=== PATIENT | male | born 1955 | race Caucasian/White ===

== ENCOUNTER → 2016-03-14 | Outpatient (CLI) | payer OTHER ==
[~2016-03-14] MED LIST: ALBU17IN INH; ATOR40TA PO; COUM10TA PO; COUM6TAB PO; ESTR1DIS5 TD; FURO40TA2 PO; INSUH10VL SC; IPRASOL4 IN; LEVE1INJ5 SC; LEXA1TAB PO; METF1000 PO; MULT1TAB10 PO; NYST10CR EXT; PHEN-239 PO; SERO50TA PO; SPIR50TA2 PO; TOPA25TA10 PO; VITA200016 PO
--- NOTE | 2016-03-14 16:43 | REP ---
Chest x-ray: Two views. History: Preoperative testing. Genital warts. No comparison studies. 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 There are degenerative changes in the thoracic spine. Heart is not enlarged. The lungs are well inflated and clear. Pleural angles are sharp. Pulmonary vasculature is not increased. No other bony abnormality is seen. Impression: Azygos lobe noted. Degenerative disc changes in the thoracic spine. No acute disease. Signed by Al Cooper MD 03/14/2016 05:03 P
== END ==
LOC: M ADAMS 15:25
PROVIDERS: ATTEND Urology
DX: Z01.818 Encounter for other preprocedural examination (principal); A63.0 Anogenital (venereal) warts

== ENCOUNTER → 2016-03-14 | Outpatient (REF) | payer OTHER ==
[2016-03-14 18:51] LABS: MEAN CORPUSCULAR HEMOGLOBIN 30.9 pg (27.0-33.0); MEAN CORPUSCULAR HGB CONC 35.4 g/dl (32.0-36.5); MEAN CORPUSCULAR VOLUME 87.5 fl (80.0-96.0)
[2016-03-14 18:53] LABS: CALCIUM LEVEL 9.9 MG/DL (8.8-10.2); CREATININE FOR GFR 1.38 MG/DL (0.70-1.30); GLOMERULAR FILTRATION RATE 55.4 (>49); POTASSIUM SERUM 3.4 MEQ/L (3.5-5.1)
[2016-03-14 18:55] LABS: INR 2.07
== END ==
LOC: M LABSMT 15:21
PROVIDERS: ATTEND Urology
DX: Z01.818 Encounter for other preprocedural examination (principal); A63.0 Anogenital (venereal) warts

== ENCOUNTER → 2016-04-10 | Outpatient (CLI) | payer OTHER ==
[2016-04-10 20:09] LABS: ALBUMIN 3.5 GM/DL (3.2-5.2); ALBUMIN/GLOBULIN RATIO 0.97 (1.00-1.93); BILIRUBIN,TOTAL 0.7 MG/DL (0.2-1.0); CREATININE FOR GFR 1.35 MG/DL (0.55-1.02); GLOMERULAR FILTRATION RATE 42.2 (>45); POTASSIUM SERUM 3.6 MEQ/L (3.5-5.1); TOTAL PROTEIN 7.1 GM/DL (6.4-8.2)
[2016-04-10 20:11] LABS: MEAN CORPUSCULAR HEMOGLOBIN 30.1 pg (27.0-33.0); MEAN CORPUSCULAR HGB CONC 33.8 g/dl (32.0-36.5); RED CELL DISTRIBUTION WIDTH 13.4 % (11.5-14.5); WHITE BLOOD COUNT 8.6 K/mm3 (4.0-10.0)
[2016-04-10 20:12] LABS: ESTRADIOL 32.7 PG/ML; PROLACTIN 4.8 NG/ML
== END ==
LOC: M LAB 17:31
PROVIDERS: ATTEND Internal Medicine Endocrinology, Diabetes & Metabolism
DX: F64.0 Transsexualism (principal); Z79.899 Other long term (current) drug therapy; E11.42 Type 2 diabetes mellitus with diabetic polyneuropathy; Z79.4 Long term (current) use of insulin

== ENCOUNTER → 2016-04-10 | Outpatient (CLI) | payer OTHER ==
[2016-04-10 19:21] LABS: MEAN CORPUSCULAR HEMOGLOBIN 30.6 pg (27.0-33.0); MEAN CORPUSCULAR HGB CONC 34.5 g/dl (32.0-36.5); MEAN CORPUSCULAR VOLUME 88.8 fl (80.0-96.0); RED CELL DISTRIBUTION WIDTH 13.4 % (11.5-14.5); WHITE BLOOD COUNT 8.8 K/mm3 (4.0-10.0)
[2016-04-10 20:07] LABS: ALBUMIN 3.5 GM/DL (3.2-5.2); ALBUMIN/GLOBULIN RATIO 0.97 (1.00-1.93); BILIRUBIN,TOTAL 0.7 MG/DL (0.2-1.0); CALCIUM LEVEL 10.1 MG/DL (8.8-10.2); CREATININE FOR GFR 1.37 MG/DL (0.55-1.02); GLOMERULAR FILTRATION RATE 41.5 (>45); POTASSIUM SERUM 3.6 MEQ/L (3.5-5.1); TOTAL PROTEIN 7.1 GM/DL (6.4-8.2)
== END ==
LOC: M LAB 17:24
PROVIDERS: ATTEND Family Medicine
DX: E34.9 Endocrine disorder, unspecified (principal)

== ENCOUNTER → 2016-04-25 | Outpatient (REF) | payer OTHER ==
[2016-04-25 20:23] LABS: ALBUMIN 3.7 GM/DL (3.2-5.2); CALCIUM LEVEL 10.3 MG/DL (8.8-10.2); CREATININE FOR GFR 1.51 MG/DL (0.55-1.02); GLOMERULAR FILTRATION RATE 37.1 (>45); PHOSPHORUS LEVEL 3.1 MG/DL (2.5-4.9); POTASSIUM SERUM 3.8 MEQ/L (3.5-5.1)
== END ==
LOC: M SFHCADAM 14:26
PROVIDERS: ATTEND Family Medicine
DX: N18.3 Chronic kidney disease, stage 3 (moderate) (principal)

== ENCOUNTER → 2016-04-25 | Outpatient (CLI) | payer OTHER ==
--- NOTE | 2016-04-25 12:24 | REP ---
URINARY TRACT SONOGRAPHY WITH RENAL VASCULAR DOPPLER ASSESSMENT: HISTORY: Chronic kidney disease stage III. MORPHOLOGIC FINDINGS: The urinary bladder is empty at the time of scanning. Renal cortical echogenicity pattern is normal bilaterally. There is some focal cortical atrophy in the left ofd-om-ydyop kidney laterally. There is a large shadowing calculus in the region of the left renal pelvis measuring 2.5 x 2.1 x 1.0 cm. There is no hydronephrosis on either side. There is a peripheral cyst at the upper pole right kidney measuring 0.9 cm. Right renal dimensions of 13.6 x 5.9 x 6.0 cm. The left kidney measures 10.0 x 6.1 x 6.3 cm. IMPRESSION: Large the renal pelvis calculus on the left without visible hydronephrosis. Focal scarring left kidney. Small cyst upper pole right kidney. RENAL ARTERY DOPPLER FLOW ASSESSMENT: Doppler flow wave forms could not be achieved sonographically in the abdominal aorta or in the right or left main renal artery due to patient body habitus. The intralobar resistive indices and acceleration times were assessed at the upper, mid and lower pole of each kidney and these values are normal bilaterally. IMPRESSION: No indirect evidence of renal artery stenosis. Renal arteries and aortic flow velocities could not be directly assessed. Signed by Al Cooper MD 04/25/2016 02:01 P
== END ==
LOC: M RAD 08:45
PROVIDERS: ATTEND Family Medicine
DX: N18.3 Chronic kidney disease, stage 3 (moderate) (principal)

== ENCOUNTER → 2016-04-26 | Outpatient (REF) | payer OTHER ==
[2016-04-26 09:52] LABS: MICROSCOPIC INDICATED? MAN YES (NO); SQUAMOUS EPITHELIAL CELL URINE NONE SEEN /hpf (SMALL AMT)
[2016-04-26 09:53] LABS: BACTERIA, URINE SMALL AMOUNT; CALCIUM OXALATE CRYSTALS,URINE MOD AMOUNT /hpf; HYALINE CAST, URINE NONE SEEN /lpf (0-1); MICROSCOPIC EXAM PERFORMED
== END ==
LOC: M SFHCADAM 09:09
PROVIDERS: ATTEND Family Medicine
DX: N18.3 Chronic kidney disease, stage 3 (moderate) (principal)

== ENCOUNTER → 2016-04-26 | Day surgery (SDC) | payer OTHER ==
[~2016-04-26] VITALS: Ht 177.8 cm; Wt 186.4 kg
[~2016-04-26] MED LIST changes: +BACITRACIN OINT 30GM As Ordered ONE; +BACITRACIN OINT 30GM TOP ONE; +GLYCOPYRROLATE INJ 0.2 MG/ML 2 ML VIAL As Ordered ONE; +HumaLOG INSULIN (NovoLOG) PER UNIT As Ordered ONE; +HumaLOG INSULIN (NovoLOG) PER UNIT SC ONE; +LIDOCAINE 2% INJ 100 MG/5 ML SDV (FOR ANES.) As Ordered ONE; +LR 1,000 ML IV SCH; +MIDAZOLAM INJ 2 MG/2 ML VIAL (J2250) As Ordered ONE; +NEOSTIGMINE 1MG/ML 5 ML SYRINGE (J2710) As Ordered ONE; +ONDANSETRON 4MG/2ML VIAL (J2405) As Ordered ONE; +PERCOCET 5MG/325MG TAB PO PRN; +PROPOFOL 200 MG/20 ML VIAL As Ordered ONE; +ceFAZolin 2 GM/D5W 50 ML IV BAG (J0690) As Ordered ONE; +dexameTHASONE 4 MG/ML 1ML VIAL (J1100) As Ordered ONE; +fentaNYL 100 MCG/2 ML INJECTION (J3010) As Ordered ONE; +fentaNYL 100 MCG/2 ML INJECTION (J3010) IV PRN; +fentaNYL 250 MCG/5 ML INJECTION (J3010) As Ordered ONE; +hydrALAZINE INJ 20 MG/ML VIAL As Ordered ONE
[2016-04-26 07:12] LABS: INR 1.13
[2016-04-26] MEDS: fentaNYL 100 MCG/2 ML INJECTION (J3010) IV PRN ×4 (10:20→10:35)
--- NOTE | 2016-04-26 12:52 | RO ---
DATE OF PROCEDURE: 04/26/2016 PREPROCEDURE DIAGNOSIS: Genital warts. POSTPROCEDURE DIAGNOSIS: Genital warts. PROCEDURE: Circumcision, excision of genital warts. SURGEON: Bernardo Horowitz MD FERRYBOAT TICKET TAKER: None ANESTHESIA: General. OPERATIVE INDICATIONS: This is a 61-year-old male who originally presented to me about 2-1/2 months ago for a penile abnormality. Of note, this patient at that time was legally a male and has since legally become a female. This is a transgender patient. At the time that I originally examined the patient, there were several [id number] lesions around the foreskin, and they appeared to be confined to that area. Therefore, I recommended that she be brought to the operating room for circumcision and for treatment of genital warts. DESCRIPTION OF PROCEDURE: The patient was brought to the operating room, and general anesthesia was induced. Prophylactic antibiotics were infused. The patient was then prepped and draped in the usual sterile fashion. At this point, the patient was examined under anesthesia; and of note, there were still several genital warts along the foreskin, as well as a few other satellite areas just above the penis, on the panus, as well as just lateral to the penis on the patient's panus. At this point, all the satellite lesions were excised, and the skin was closed using interrupted 3-0 chromic sutures. At this point, I then began the circumcision and placed a 2-0 silk retraction stitch through the glans. Then, a circumcising incision was made around the foreskin just proximal to the coronal sulcus. Another circumcising incision was made around the foreskin after the foreskin was pulled back over the glans. These two circumcising incisions were then connected using Bovie electrocautery. Then, all of the foreskin between the two incisions was excised using electrocautery. At this point, hemostasis was obtained using electrocautery. It did appear that all the warts were removed with the foreskin. The skin of the shaft of the penis was then reapproximated to the glans using interrupted 3-0 chromic sutures circumferentially. Once this was done, the dressings were applied, including a Modesta dressing around the penis. A Kerlix fluff dressing was then placed, as well, and this marked the conclusion of the procedure. The patient was then awakened from anesthesia and transported to the recovery room in stable condition. ESTIMATED BLOOD LOSS: 10 mL. COMPLICATIONS: None. SPECIMENS: Foreskin, genital warts. PLAN: The patient will be discharged home and followup in the clinic in 2-3 weeks for a postoperative visit. RAKESH
[2016-04-26 14:30] VITALS: BP 152/88
== END | disposition home or self-care (01) ==
LOC: M SDC 06:18 → EDSEX 07:30
PROVIDERS: ATTEND Urology
DX: A63.0 Anogenital (venereal) warts (principal); N48.83 Acquired buried penis; E10.9 Type 1 diabetes mellitus without complications; I10 Essential (primary) hypertension; E78.5 Hyperlipidemia, unspecified; R85.81 Anal high risk human papillomavirus (HPV) DNA test positive; R29.898 Other symptoms and signs involving the musculoskeletal system; R06.83 Snoring; F41.9 Anxiety disorder, unspecified; F32.9 Major depressive disorder, single episode, unspecified; F43.10 Post-traumatic stress disorder, unspecified; G47.33 Obstructive sleep apnea (adult) (pediatric); J44.9 Chronic obstructive pulmonary disease, unspecified; I50.9 Heart failure, unspecified; E66.01 Morbid (severe) obesity due to excess calories; Z79.899 Other long term (current) drug therapy; Z79.4 Long term (current) use of insulin; Z79.01 Long term (current) use of anticoagulants; Z86.711 Personal history of pulmonary embolism
CPT/HCPCS: 36415; 54065; 54161; 85610; 88304; 88305; J0690; J1100; J2250; J2405; J2710; J3010

== ENCOUNTER → 2016-05-08 | Outpatient (REF) | payer OTHER ==
[~2016-05-08] MED LIST changes: -BACITRACIN OINT 30GM As Ordered ONE; -BACITRACIN OINT 30GM TOP ONE; -GLYCOPYRROLATE INJ 0.2 MG/ML 2 ML VIAL As Ordered ONE; -HumaLOG INSULIN (NovoLOG) PER UNIT As Ordered ONE; -HumaLOG INSULIN (NovoLOG) PER UNIT SC ONE; -LIDOCAINE 2% INJ 100 MG/5 ML SDV (FOR ANES.) As Ordered ONE; -LR 1,000 ML IV SCH; -MIDAZOLAM INJ 2 MG/2 ML VIAL (J2250) As Ordered ONE; -NEOSTIGMINE 1MG/ML 5 ML SYRINGE (J2710) As Ordered ONE; -ONDANSETRON 4MG/2ML VIAL (J2405) As Ordered ONE; -PERCOCET 5MG/325MG TAB PO PRN; -PROPOFOL 200 MG/20 ML VIAL As Ordered ONE; -ceFAZolin 2 GM/D5W 50 ML IV BAG (J0690) As Ordered ONE; -dexameTHASONE 4 MG/ML 1ML VIAL (J1100) As Ordered ONE; -fentaNYL 100 MCG/2 ML INJECTION (J3010) As Ordered ONE; -fentaNYL 100 MCG/2 ML INJECTION (J3010) IV PRN; -fentaNYL 250 MCG/5 ML INJECTION (J3010) As Ordered ONE; -hydrALAZINE INJ 20 MG/ML VIAL As Ordered ONE
[2016-05-08 15:31] LABS: CALCIUM LEVEL 9.8 MG/DL (8.8-10.2); CREATININE FOR GFR 1.23 MG/DL (0.55-1.02); GLOMERULAR FILTRATION RATE 46.9 (>45); POTASSIUM SERUM 4.2 MEQ/L (3.5-5.1)
== END ==
LOC: M SHH 14:59
PROVIDERS: ATTEND Family Medicine
DX: N18.3 Chronic kidney disease, stage 3 (moderate) (principal)

== ENCOUNTER → 2016-05-29 | Outpatient (CLI) | payer OTHER ==
--- NOTE | 2016-05-29 15:39 | REP ---
CT ABDOMEN AND PELVIS WITHOUT IV CONTRAST: CT abdomen and pelvis performed without IV contrast. Sagittal and coronal reconstruction images are performed. Visualized lung bases demonstrate tiny calcified granulomas bilaterally. Liver, gallbladder, spleen, adrenals, and pancreas are grossly unremarkable. Both kidneys demonstrate areas of cortical scarring. There is no hydroureteronephrosis. There is a dominant oval calculus in the mid right renal collecting system measuring 1.8 x 1.3 x 0.8 cm. A dominant calculus in the lower pole of the left renal collecting system measures 1.1 x 1.5 x 0.9 cm. A smaller calculus in the upper pole collecting system on the left measures 7 mm in diameter. There appears to be a small cyst in the lower pole of the left kidney as well as in the lower pole of the right kidney. There is no abdominal aortic aneurysm. There is no adenopathy. There is no free air or free fluid. There is no bowel wall thickening. There does appear to be a small umbilical hernia containing fat. A small amount of fluid is seen in the left inguinal canal. Urinary bladder is not well distended and not well evaluated. IMPRESSION: Bilateral renal calculi as discussed above with multifocal cortical scarring and thinning. Small cyst is seen in the lower pole of each kidney. No hydroureteronephrosis. Signed by Krishna Carrera MD 05/29/2016 03:58 P
== END ==
LOC: M RAD 14:38
PROVIDERS: ATTEND Urology
DX: N20.0 Calculus of kidney (principal)

== ENCOUNTER → 2016-07-07 | Outpatient (CLI) | payer OTHER ==
[2016-07-07 18:45] LABS: ALBUMIN 3.5 GM/DL (3.2-5.2); ALBUMIN/GLOBULIN RATIO 1.03 (1.00-1.93); BILIRUBIN,TOTAL 0.7 MG/DL (0.2-1.0); CALCIUM LEVEL 9.1 MG/DL (8.8-10.2); CREATININE FOR GFR 1.2 MG/DL (0.55-1.02); GLOMERULAR FILTRATION RATE 48.3 (>45); MAGNESIUM LEVEL 1.4 MG/DL (1.8-2.4); PERCENT SATURATION 27.3 % (13.2-37.4); PHOSPHORUS LEVEL 2.7 MG/DL (2.5-4.9); TOTAL PROTEIN 6.9 GM/DL (6.4-8.2)
[2016-07-07 18:53] LABS: BASO % 0.4 % (0.0-1.0); EOS # 0.2 K/mm3 (0.0-0.50); EOS % 3.1 % (0.0-3.0); LARGE UNSTAINED CELL # 0.1 K/mm3 (0.0-0.4); LARGE UNSTAINED CELL % 1.9 % (0.0-4.0); LYMPH # 1.9 K/mm3 (1.5-4.5); LYMPH % 28.8 % (24.0-44.0); MEAN CORPUSCULAR HEMOGLOBIN 30.7 pg (27.0-33.0); MEAN CORPUSCULAR HGB CONC 34.7 g/dl (32.0-36.5); MEAN CORPUSCULAR VOLUME 88.5 fl (80.0-96.0); MONO # 0.4 K/mm3 (0.0-0.8); MONO % 5.9 % (0.0-5.0); NEUTROPHILS # 3.9 K/mm3 (1.8-7.7); PLATELET COUNT, AUTOMATED 288 k/mm3 (150-450); RED CELL DISTRIBUTION WIDTH 14.1 % (11.5-14.5); WHITE BLOOD COUNT 6.4 K/mm3 (4.0-10.0)
== END ==
LOC: M ADAMS 12:59
PROVIDERS: ATTEND Urology
DX: K91.2 Postsurgical malabsorption, not elsewhere classified (principal); Z98.84 Bariatric surgery status

== ENCOUNTER 2016-07-29 13:40 | Emergency (ER) | payer OTHER ==
[~2016-07-29] VITALS: Ht 177.8 cm; Wt 172.8 kg
[2016-07-29] MEDS ORDERED: NS 1,000 ML IV SCH (13:52)
[2016-07-29] MEDS ORDERED: PANTOPRAZOLE 40MG INJ (PROTONIX) (C9113) IV ONE (14:00)
[2016-07-29 14:53] LABS: BASO % 0.4 % (0.0-1.0); EOS # 0.1 K/mm3 (0.0-0.50); LARGE UNSTAINED CELL # 0.1 K/mm3 (0.0-0.4); LYMPH # 1.8 K/mm3 (1.5-4.5); LYMPH % 18.6 % (24.0-44.0); MEAN CORPUSCULAR HEMOGLOBIN 30.1 pg (27.0-33.0); MEAN CORPUSCULAR HGB CONC 34.9 g/dl (32.0-36.5); MEAN CORPUSCULAR VOLUME 86.3 fl (80.0-96.0); MONO # 0.4 K/mm3 (0.0-0.8); MONO % 3.8 % (0.0-5.0); NEUTROPHILS # 6.9 K/mm3 (1.8-7.7); NEUTROPHILS % 75.2 % (36.0-66.0); PLATELET COUNT, AUTOMATED 273 k/mm3 (150-450); RED CELL DISTRIBUTION WIDTH 14.1 % (11.5-14.5); WHITE BLOOD COUNT 9.2 K/mm3 (4.0-10.0)
[2016-07-29 15:23] LABS: ALBUMIN 2.8 GM/DL (3.2-5.2); ALBUMIN/GLOBULIN RATIO 0.78 (1.00-1.93); ALKALINE PHOSPHATASE 65 U/L (45-117); ALT/SGPT 25 U/L (12-78); ANION GAP 8 MEQ/L (8-16); AST/SGOT 14 U/L (15-37); BILIRUBIN,DIRECT 0.1 MG/DL (0.0-0.2); BILIRUBIN,TOTAL 0.4 MG/DL (0.2-1.0); BLOOD UREA NITROGEN 36 MG/DL (7-18); CALCIUM LEVEL 9.2 MG/DL (8.8-10.2); CARBON DIOXIDE LEVEL 24 MEQ/L (21-32); CHLORIDE LEVEL 110 MEQ/L (98-107); CREATININE FOR GFR 1.33 MG/DL (0.55-1.02); GLOMERULAR FILTRATION RATE 42.9 (>45); GLUCOSE, FASTING 160 MG/DL (80-110); POTASSIUM SERUM 4.6 MEQ/L (3.5-5.1); SODIUM LEVEL 142 MEQ/L (136-145); TOTAL PROTEIN 6.4 GM/DL (6.4-8.2)
[2016-07-29 16:08] LABS: INR 11.99
[2016-07-29] MEDS ORDERED: PHYTONADIONE 10MG/ML INJECTION (J3430) SC ONE (16:30)
[2016-07-29] MEDS: PANTOPRAZOLE SODIUM 40 MG in D5W MINI-BAG PLUS 50 ML IV SCH ×2 (16:31→19:00)
--- NOTE | 2016-07-29 18:18 | ECGEPIP ---
Stationary ECG Study [facility] - ED Test Date: 2016-07-29 Pat Name: OG PANTOJA Department: Room: - Gender: F [employer]ging [employer] Lever Tender: MARIA ELENA : 1955 Requested By: Joanna Vicente Order Number: [id number] Reading MD: Joanna Vicente Measurements Intervals [place] Rate: 99 P: 87 IA: 183 QRS: -51 QRSD: 157 T: -3 QT: 374 QTc: 480 Interpretive Statements SINUS RHYTHM RIGHT BUNDLE BRANCH BLOCK LEFT ANTERIOR FASCICULAR BLOCK POSSIBLE ANTERIOR MYOCARDIAL INFARCTION, PROBABLY OLD NO PRIOR FOR COMPARISON Electronically Signed On 07-29-2016 18:18:20 EDT by Joanna Vicente
[2016-07-29 19:58] VITALS: BP 116/71
--- NOTE | 2016-07-30 08:58 | REP ---
CT ABDOMEN AND PELVIS WITHOUT CONTRAST: HISTORY: Gastric bypass. COMPARISON: 05/29/2016 The patient is status post gastric bypass. The kidneys irregular in contour, consistent with scarring. Calcifications are present in the kidneys, consistent with nephrolithiasis. A 1.5 cm cyst is present in the lower pole of the left kidney. There is no mass, adenopathy, or free fluid. A small 3.3 cm fat-containing umbilical hernia is present. The visualized lungs are clear. CT PELVIS: Urinary bladder and uterus are normal in appearance. There is no mass adenopathy or free fluid. IMPRESSION: 1. Bilateral nephrolithiasis. 2. 1.5 cm left renal cyst. 3. Small umbilical hernia. Signed by Ricky Koehler MD 07/30/2016 09:22 A
== END 2016-07-29 20:00 | disposition short-term general hospital (02) ==
LOC: EDBD 13:40 → M ED 15:28
DX: K92.2 Gastrointestinal hemorrhage, unspecified (principal); K92.1 Melena; N20.0 Calculus of kidney; K42.9 Umbilical hernia without obstruction or gangrene; I10 Essential (primary) hypertension; I50.9 Heart failure, unspecified; E11.9 Type 2 diabetes mellitus without complications; Z79.01 Long term (current) use of anticoagulants; Z98.84 Bariatric surgery status
CPT/HCPCS: 36415; 36430; 74176; 80048; 80076; 82550; 82553; 83605; 83690; 85025; 85610; 86850; 86900; 86901; 86927; 93005; 94760; 96372; 96374; 96375; 99285; C9113; J3430; P9017

== ENCOUNTER → 2016-08-08 | Outpatient (REF) | payer OTHER ==
[2016-08-08 19:28] LABS: MEAN CORPUSCULAR HEMOGLOBIN 30.7 pg (27.0-33.0); MEAN CORPUSCULAR HGB CONC 33.2 g/dl (32.0-36.5); MEAN CORPUSCULAR VOLUME 92.5 fl (80.0-96.0); RED CELL DISTRIBUTION WIDTH 16.1 % (11.5-14.5); WHITE BLOOD COUNT 5.3 K/mm3 (4.0-10.0)
[2016-08-08 19:31] LABS: INR 1.05
[2016-08-08 20:38] LABS: ALBUMIN 3.2 GM/DL (3.2-5.2); ALBUMIN/GLOBULIN RATIO 1.03 (1.00-1.93); BILIRUBIN,TOTAL 0.6 MG/DL (0.2-1.0); CALCIUM LEVEL 9.6 MG/DL (8.8-10.2); CREATININE FOR GFR 1.11 MG/DL (0.55-1.02); GLOMERULAR FILTRATION RATE 52.8 (>45); MAGNESIUM LEVEL 1.7 MG/DL (1.8-2.4); POTASSIUM SERUM 4.2 MEQ/L (3.5-5.1); TOTAL PROTEIN 6.3 GM/DL (6.4-8.2)
== END ==
LOC: M SFHCADAM 14:28
PROVIDERS: ATTEND Physician Assistant
DX: Z86.718 Personal history of other venous thrombosis and embolism (principal); R60.9 Edema, unspecified; E11.65 Type 2 diabetes mellitus with hyperglycemia; E78.2 Mixed hyperlipidemia; Z86.711 Personal history of pulmonary embolism; Z79.01 Long term (current) use of anticoagulants

== ENCOUNTER → 2016-08-17 | Outpatient (REF) | payer OTHER ==
[2016-08-17 20:18] LABS: ESTRADIOL 20.3 PG/ML
== END ==
LOC: M LABDRWAD 09:50
PROVIDERS: ATTEND Nurse Practitioner Family
DX: Z79.899 Other long term (current) drug therapy (principal)

== ENCOUNTER → 2016-09-14 | Outpatient (CLI) | payer OTHER ==
[~2016-09-14] MED LIST changes: -ATOR40TA PO; +ATOR40TA75 PO; +BIOT10008 PO; +CALC1POW TOP; +CALC250T PO; +CYTO100T PO; +ENOX150I3 SC; +ESCI20TA PO; +ESTR0.059 TD; +GAS-80CH PO; +MAG400TA PO; +METF-414 PO; -METF1000 PO; +METF10004 PO; -NYST10CR EXT; +NYST10CR TOP; +OMEP40CA2 PO; +TOPA1TAB PO; -TOPA25TA10 PO; +VITA10002 PO; +VITA500T88 PO; +WARF-23 PO; +[UNRECOGNIZED DRUG - CODE] SC
--- NOTE | 2016-09-14 14:55 | REP ---
PA and lateral chest: Comparison is 03/14/2016. The lung quezada are clear. Cardiac size is normal. The right hilus appears enlarged but unchanged. The left hilus is unremarkable. The interstitium is unremarkable. 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 There is demineralization and thoracic scoliosis convex right, unchanged. Impression: Enlarged right hilus. The left hilus is unremarkable. Demineralization and scoliosis, unchanged. No interval change. Signed by Krishna Ferreira MD 09/14/2016 02:46 P
== END ==
LOC: M ADAMS 14:10
PROVIDERS: ATTEND Internal Medicine Pulmonary Disease
DX: D86.89 Sarcoidosis of other sites (principal)

== ENCOUNTER → 2016-09-29 | Outpatient (CLI) | payer OTHER ==
[~2016-09-29] MED LIST changes: +ISOVUE-370 76% 100ML VIAL (Q9967) As Ordered ONE
--- NOTE | 2016-09-30 10:43 | REP ---
CT CHEST WITH CONTRAST: 09/29/2016. CLINICAL HISTORY: Large right hilum. Recent chest x-ray 09/14/2016 showed hilar enlargement compared to 03/14/2016 chest x-ray. COMPARISON: 09/14/2016, 03/14/2016 chest x-ray. TECHNIQUE. A bolus of 75 mL Isovue 370 scanning through the chest with coronal and sagittal reconstructions. Nursing note indicates IV contrast leaking around the needle hub with the IV restarted. FINDINGS: The lung quezada are well inflated. There is a small calcified granuloma along the pleural margin in the left lower lobe on image 81. Only minimal pleural thickening posteriorly in the left lower lung zone without pleural effusion, lateral pleural thickening, calcified pleural plaques or acute infiltrate. There is an azygos lobe fissure in the medial right apex as an anatomic variation. There is some mild cylindrical bronchiectatic change in some of the subsegmental airways adjacent to the pulmonary arteries of both lower lung zones. Another small granuloma lateral aspect of the inferior lingular segment on image 70 and a third just posterior to the major fissure in the lateral basal segment of the left lower lobe on image 79. Heart is not enlarged. There is no pericardial thickening or effusion. The aorta is without aneurysm and has a few calcifications in the arch. There is no dissection. I see no pathologic sized mediastinal or hilar adenopathy. The right hilar prominence is noted by radiograph is due to prominence of the pulmonary artery. No adjacent nodes or mass. Pulmonary arteries are not well opacified with minimal contrast as this was not a CT pulmonary angiogram study. However, there appear to be filling defects in branches off the main, right and left pulmonary arteries as they descend into the lower lobe pulmonary arteries and the right middle lobe pulmonary artery. Also the left upper lobe artery shows thrombus or filling defects. In the descending branches of the right lower lobe there is more thrombus although contrast is not ideal filling defects are clearly defined. There is no axillary or supraclavicular mass. There are diffuse degenerative changes with marginal osteophytes and some flowing osteophytes in the thoracic spine but no acute compression deformity or destructive lesion. Sternum, manubrium, medial clavicles, scapulae and ribs grossly intact. The upper abdomen shows no splenomegaly or focal lesion. That portion of liver was grossly intact. Gallbladder shows no calcified stone. The visualized pancreas was unremarkable . There were gastric bypass staple lines overlying the stomach. Adrenal glands were normal. Upper poles of kidneys show lobation and some scarring laterally in the upper pole on the left. Small calcification in that upper pole on the left as well. IMPRESSION: 1. Although not a CT pulmonary angiogram study, the small amount of contrast in the pulmonary arteries is sufficient to define multiple filling defects bilaterally at the takeoffs of multiple lobar arteries including the right middle and lower lobes as well as the left upper and lower lobe pulmonary arteries. Thrombus as filling defects in segmental arteries is also suggested. A more definitive CT angiogram would be strongly recommended. 2. Enlargement of the right hilum noted on chest x-ray compared to the February study is only enlargement of the pulmonary artery itself without adjacent adenopathy, atelectasis or soft tissue mass in the hilum or lung adjacent. 3. Some granulomatous changes in the lung quezada minimal and no acute infiltrate, nodule or mass in the lung otherwise. No effusion, cardiomegaly or edema. 4. No aortic aneurysm or dissection. 5. We tried contacting the patient directly at home before this dictation and left a message on her answering machine. I have discussed this case with our ED provider since I believe she needs to come for urgent CTA pulmonary angiogram and definitive therapy for this unexpected finding. I am trying to reach the requesting nurse practitioner for this patient at the time of this dictation, at 9:38 AM. Signed by Chris Malik MD 09/30/2016 07:54 P
== END ==
LOC: M RAD 17:05
PROVIDERS: ATTEND Nurse Practitioner Family
DX: G47.33 Obstructive sleep apnea (adult) (pediatric) (principal)
CPT/HCPCS: 71260; Q9967

== ENCOUNTER 2016-09-30 12:14 | Inpatient (IN) | payer OTHER ==
[~2016-09-30] VITALS: Ht 177.8 cm; Wt 162.7 kg
[2016-09-30] MEDS: FUROSEMIDE 40 MG TAB PO SCH (09:00)
[2016-09-30] MEDS: ATORVASTATIN 20 MG TAB PO SCH (09:00)
[2016-09-30] MEDS: SPIRONOLACTONE 50 MG TAB PO SCH (09:00)
[2016-09-30] MEDS: MAGNESIUM OXIDE 400 MG TAB (MAG-OX) PO SCH (09:00)
[~2016-09-30 12:14] MED LIST changes: -BIOT10008 PO; -CALC1POW TOP; -CALC250T PO; -CYTO100T PO; -ENOX150I3 SC; -ESCI20TA PO; -ESTR0.059 TD; -GAS-80CH PO; -ISOVUE-370 76% 100ML VIAL (Q9967) As Ordered ONE; -MAG400TA PO; -METF-414 PO; -OMEP40CA2 PO; -VITA10002 PO; -VITA500T88 PO; -WARF-23 PO; -[UNRECOGNIZED DRUG - CODE] SC
[2016-09-30 12:57] LABS: BASO % 0.6 % (0.0-1.0); EOS # 0.2 K/mm3 (0.0-0.50); LARGE UNSTAINED CELL # 0.1 K/mm3 (0.0-0.4); LARGE UNSTAINED CELL % 1.6 % (0.0-4.0); LYMPH # 1.5 K/mm3 (1.5-4.5); LYMPH % 27.2 % (24.0-44.0); MEAN CORPUSCULAR HEMOGLOBIN 28.7 pg (27.0-33.0); MEAN CORPUSCULAR HGB CONC 33.5 g/dl (32.0-36.5); MEAN CORPUSCULAR VOLUME 85.6 fl (80.0-96.0); MONO # 0.4 K/mm3 (0.0-0.8); NEUTROPHILS # 3.2 K/mm3 (1.8-7.7); NEUTROPHILS % 59.6 % (36.0-66.0); PLATELET COUNT, AUTOMATED 206 k/mm3 (150-450); RED CELL DISTRIBUTION WIDTH 13.4 % (11.5-14.5); WHITE BLOOD COUNT 5.4 K/mm3 (4.0-10.0)
[2016-09-30 13:16] LABS: CALCIUM LEVEL 9.6 MG/DL (8.8-10.2); CREATININE FOR GFR 1.05 MG/DL (0.55-1.02); GLOMERULAR FILTRATION RATE 56.3 (>45); POTASSIUM SERUM 4.2 MEQ/L (3.5-5.1)
[2016-09-30] MEDS ORDERED: ISOVUE-370 76% 100ML VIAL (Q9967) As Ordered ONE (13:28)
[2016-09-30] MEDS ORDERED: VITA10002 PO (15:05)
[2016-09-30] MEDS ORDERED: ESCI20TA PO (15:05)
[2016-09-30] MEDS ORDERED: METF-414 PO (15:05)
[2016-09-30] MEDS ORDERED: BIOT10008 PO (15:05)
[2016-09-30] MEDS ORDERED: OMEP40CA2 PO (15:05)
[2016-09-30] MEDS ORDERED: MAG400TA PO (15:05)
[2016-09-30] MEDS ORDERED: CYTO100T PO (15:05)
[2016-09-30] MEDS ORDERED: CALC250T PO (15:05)
[2016-09-30] MEDS ORDERED: ESTR0.059 TD (15:05)
[2016-09-30] MEDS ORDERED: CALC1POW TOP (15:05)
[2016-09-30] MEDS ORDERED: VITA500T88 PO (15:05)
[2016-09-30] MEDS ORDERED: GAS-80CH PO (15:05)
[2016-09-30] MEDS ORDERED: ALBU17IN INH (15:05)
[2016-09-30] MEDS ORDERED: ACETAMINOPHEN 650 MG SUPP PR PRN (17:15)
[2016-09-30] MEDS ORDERED: SIMETHICONE 80 MG CHEW TAB PO PRN (17:45)
[2016-09-30] MEDS ORDERED: ALBUTEROL 90 MCG/ACT 8GM HFA INHALER INH PRN (17:45)
[2016-09-30] MEDS ORDERED: HEPARIN SOD (PORCINE) 5000 UNITS/ML VIAL IV PRN (18:15)
[2016-09-30] MEDS ORDERED: HEPARIN SOD (PORCINE) 5000 UNITS/ML VIAL IV ONE (18:15)
[2016-09-30 19:26] LABS: INR 1.03
[2016-09-30] MEDS: HEPARIN DRIP 25,000 UNITS in APPROPRIATE DILUENT 1 EA IV SCH (19:54)
--- NOTE | 2016-09-30 20:21 | HPEPDOC ---
General Date of Admission Primary Care Physician: CYNTHIA KIM PA-C Attending Physician: ELVA SERRANO MD Chief Complaint The patient is a 61-year-old female admitted with a reason for visit of Medical Complaint. History of Present Illness Ms. Marin is a 61 y/o woman with a past medical history of PE in 1998 who was on chronic warfarin in 07/2016 when she had a GI bleed with a supratherapeutic INR of >11. She was transferred to [facility] where here warfarin was stopped; hypercoag profile done there was normal. Yesterday she underwent a routine chest CT to assess for lung sarcoidosis, as she has liver sarcoidosis. Incidentally, she was found to have multiple filling defects in multiple lobes, including right middle and lower lobes and left upper and lower lobe pulmonary arteries. She was called last night regarding this but did not return the call until today, when she was advised to come to the ED for admission. She is asymptomatic and has no complaints today. Home Medications Scheduled Ascorbic Acid (Vitamin C) 500 Mg Tab, 500 MG PO DAILY, (Reported) TAKES AT NOON Atorvastatin Calcium (Atorvastatin Calcium) 40 Mg Tab, 40 MG PO DAILY, (Reported ) Biotin (Vitamin H) (Biotin) 1,000 Mcg Tab, 2,000 MCG PO DAILY, (Reported) Calcium Citrate (Calcium Citrate) 250 Mg Tab, 250 MG PO BID, (Reported) Cyanocobalamin (Vitamin B-12) 1,000 Mcg Tab, 1,000 MCG PO DAILY, (Reported) TAKES AT NOON Escitalopram Oxalate (Escitalopram Oxalate) 20 Mg Tab, 20 MG PO QHS, (Reported) Estradiol (Estradiol) 0.05 Mg Tdsy, 0.05 MG TD QWEEK, (Reported) CHANGES AND REAPPLIES EVERY SUNDAY Furosemide (Furosemide) 40 Mg Tab, 40 MG PO DAILY, (Reported) Magnesium Oxide (Magnesium Oxide) 400 Mg Tab, 400 MG PO DAILY, (Reported) Metformin Hydrochloride (Metformin HCl ER) 500 Mg Tab, 1,000 MG PO BID, ( Reported) Misoprostol (Cytotec) 100 Mcg Tab, 100 MCG PO BID, (Reported) PRESCRIBED QID, PATIENT ONLY TAKES BID Multivitamins (Multivitamin Adults) 1 Tab Tab, 1 TAB PO DAILY, (Reported) Omeprazole (Omeprazole) 40 Mg Cap, 40 MG PO BID, (Reported) Quetiapine Fumerate (Seroquel) 50 Mg Tab, 50 MG PO QHS, (Reported) Spironolactone (Spironolactone) 50 Mg Tab, 50 MG PO DAILY, (Reported) Vitamin D (Vitamin D) 2,000 Unit Cap, 2,000 UNIT PO DAILY, (Reported) Scheduled PRN Albuterol Sulfate (Ventolin Hfa) 200 Puff/8 Gm Aers, 2 PUFF INH Q4H PRN for SHORTNESS OF BREATH, (Reported) Calcipotriene (Calcipotriene) 1 Pow Pow, 1 POW TOP BID PRN for RASH/ITCHING, ( Reported) APPLY TO SKIN FOLDS Nystatin (Nystatin) 100,000 Unit/Gm Cre, 1 DOSE TOP BID PRN for RASH/ITCHING, ( Reported) APPLY TO SKIN FOLDS Simethicone (Gas-X) 80 Mg Chw, 80 MG PO PRN PRN for GAS PAIN, (Reported) Allergies Coded Allergies: No Known Allergies (Verified , 09/30/16) Past Medical History Medical History 1. Hypertension 2. Hyperlipidemia 3. History of PE in 1998, on warfarin until 07/2016 4. Transgender 5. Diabetes 6. Anxiety and depression with PTSD 7. Vitamin D deficiency 8. Morbid obesity 9. DJD left knee 10. Sarcoidosis in liver 11. DREW Surgical History 1. Tonsillectomy 2. Gastric bypass, Lili-en-Y 06/08/16 Family History Denies family history of clotting disorders; father had a LA and colon cancer, mother had kidney and heart disease Social History * Smoker: non-smoker Alcohol: Denies Drugs: denies Review of Symptoms Constitutional: Denies: Chills, Fever Eyes: Denies: Pain ENT: Denies: Head Aches Skin: Denies: Rash Pulmonary: Denies: Dyspnea, Cough Cardiovascular: Denies: Chest Pain, Palpitations, Orthopnea, Lt Headedness Gastrointestinal: Denies: Nausea, Vomiting, Abdominal Pain, Diarrhea, Constipation Genitourinary: Denies: Dysuria Hematologic: Denies: Bruising, Bleeding Excessively Musculoskeletal: Denies: Neck Pain, Back Pain Neurological: Denies: Weakness, Numbness Psych: Reports: Mood Normal Physical Examination General Exam: Positive: Alert, Cooperative, No Acute Distress Eye Exam: Positive: PERRLA, Conjunctiva & lids normal ENT Exam: Positive: Atraumatic, Mucous membr. moist/pink Neck Exam: Positive: Supple, thyromegaly Chest Exam: Positive: Clear to auscultation, Normal air movement, Negative: Rales, Rhonchi, Wheezing Heart Exam: Positive: Rate Normal, Regular Rhythm, Normal S1, Normal S2 Abdomen Exam: Positive: Soft, Negative: Tenderness Extremity Exam: Positive: Edema (1+ ankle edema bilaterally), Negative: Tenderness Skin Exam: Negative: Rash Neuro Exam: Positive: Normal Speech, Sensation Intact, Cranial Nerves 3-12 NL Psych Exam: Positive: Mental status NL, Mood NL, Oriented x 3 Vital Signs Vital Signs Date Time Temp Pulse Resp B/P (MAP) Pulse Ox O2 Delivery O2 Flow Rate FiO2 09/30/16 17:15 66 99 09/30/16 16:45 145/97 (113) 09/30/16 12:15 97.8 16 Room Air Laboratory Data Labs 24H Laboratory Tests 2 09/30/16 12:48: White Blood Count 5.4, Red Blood Count 4.51, Hemoglobin 12.9, Hematocrit 38.6, Mean Corpuscular Volume 85.6, Mean Corpuscular Hemoglobin 28.7, Mean Corpuscular Hemoglobin Concent 33.5, Red Cell Distribution Width 13.4, Platelet Count 206, Neutrophils (%) (Auto) 59.6, Lymphocytes (%) (Auto) 27.2, Monocytes ( %) (Auto) 7.0H, Eosinophils (%) (Auto) 4.0H, Basophils (%) (Auto) 0.6, Neutrophils # (Auto) 3.2, Lymphocytes # (Auto) 1.5, Monocytes # (Auto) 0.4, Eosinophils # (Auto) 0.2, Basophils # (Auto) 0.0, Large Unclassified Cells % 1.6 , Large Unclassified Cells # 0.1, Anion Gap 8, Glomerular Filtration Rate 56.3, Blood Urea Nitrogen 11, Creatinine 1.05H, Sodium Level 140, Potassium Level 4.2 , Chloride Level 106, Carbon Dioxide Level 26, Calcium Level 9.6 CBC/BMP Laboratory Tests 09/30/16 12:48 Red Blood Count 4.51, Mean Corpuscular Volume 85.6, Mean Corpuscular Hemoglobin 28.7, Mean Corpuscular Hemoglobin Concent 33.5, Red Cell Distribution Width 13.4 , Neutrophils (%) (Auto) 59.6, Lymphocytes (%) (Auto) 27.2, Monocytes (%) (Auto ) 7.0 H, Eosinophils (%) (Auto) 4.0 H, Basophils (%) (Auto) 0.6, Neutrophils # ( Auto) 3.2, Lymphocytes # (Auto) 1.5, Monocytes # (Auto) 0.4, Eosinophils # (Auto ) 0.2, Basophils # (Auto) 0.0, Calcium Level 9.6 Problems (1) Pulmonary emboli Status: Acute Response to Treatment: Stable Problem Text: Patient with multiple PEs but no symptoms. He had a GI bleed while on warfarin in 07/2016 and has not yet had a colonoscopy to work this up; he states his GI doctor, Dr. Acosta, wanted him to have clearance by a dolphin trainer prior to his colonoscopy. He is at some risk for rebleed on anticoagulants, but when he bled he also had a very supratherapeutic INR of > 11. - Admit to PCU - Start heparin gtts for easy reversibility if needed - Hemoccult all stools and monitor CBC daily - Will d/w PCP whether to restart warfarin; may need to consult GI as well on Sunday (2) History of GI bleed Status: Acute Problem Text: Monitor for signs of re-bleed (3) Hypertension Status: Chronic Response to Treatment: Stable (4) Hyperlipidemia Status: Chronic Response to Treatment: Stable (5) Diabetes mellitus Status: Chronic Response to Treatment: Stable (6) Depression Status: Chronic Response to Treatment: Stable (7) DREW (obstructive sleep apnea) Status: Chronic Response to Treatment: Stable Problem Text: Will ask patient to have family bring in his CPAP from home. (8) Sarcoidosis Status: Chronic Response to Treatment: Stable Plan / VTE VTE Prophylaxis Ordered?: Yes (heaprin gtts) ELVA SERRANO MD Sep 30, 2016 17:43
[2016-09-30] MEDS: QUEtiapine FUMARATE 50 MG TAB PO SCH (21:00)
[2016-09-30] MEDS: metFORMIN XR 500MG TAB *GLUCOPHAGE XR PO SCH (21:00)
[2016-09-30 21:20] VITALS: BP 134/82
[2016-09-30] MEDS: ESCITALOPRAM OXALATE 10 MG TAB (LEXAPRO) PO SCH (22:12)
[2016-09-30] MEDS: OMEPRAZOLE 20 MG CAP PO SCH (22:12)
[2016-09-30 23:59] VITALS: BP 142/78
[2016-10-01 03:21] LABS: MEAN CORPUSCULAR HEMOGLOBIN 28.7 pg (27.0-33.0); MEAN CORPUSCULAR HGB CONC 33.4 g/dl (32.0-36.5); MEAN CORPUSCULAR VOLUME 85.9 fl (80.0-96.0); RED CELL DISTRIBUTION WIDTH 13.2 % (11.5-14.5)
[2016-10-01 03:36] LABS: CALCIUM LEVEL 9.5 MG/DL (8.8-10.2); CREATININE FOR GFR 1.11 MG/DL (0.55-1.02); GLOMERULAR FILTRATION RATE 52.8 (>45); POTASSIUM SERUM 3.8 MEQ/L (3.5-5.1)
[2016-10-01 04:45] VITALS: BP 130/63
[2016-10-01] MEDS ORDERED: HEPARIN SOD (PORCINE) 5000 UNITS/ML VIAL IV ONE (06:45)
[2016-10-01 08:00] VITALS: BP 164/78
--- NOTE | 2016-10-01 08:50 | IPNPDOC ---
Subjective Date Seen The patient was seen on 10/01/16. Subjective Chief Complaint/HPI The patient is a 61-year-old female admitted with a reason for visit of Pulmonary Emboli. Events since last encounter Doing well; remains asymptomatic Constitutional: Denies: Chills, Fever, Malaise ENT: Denies: Head Aches Skin: Denies: Rash Pulmonary: Denies: Dyspnea, Cough Cardiovascular: Denies: Chest Pain, Palpitations, Orthopnea, Lt Headedness Gastrointestinal: Denies: Nausea, Vomiting, Abdominal Pain, Diarrhea, Constipation, Melena, Hematochezia Hematologic: Denies: Bruising, Bleeding Excessively Neurological: Denies: Weakness, Numbness Objective Physical Examination General Exam: Positive: Alert, Cooperative, No Acute Distress Eye Exam: Positive: PERRLA, Conjunctiva & lids normal ENT Exam: Positive: Atraumatic, Mucous membr. moist/pink Chest Exam: Positive: Clear to auscultation, Normal air movement, Negative: Rales, Rhonchi, Wheezing Heart Exam: Positive: Rate Normal, Regular Rhythm, Normal S1, Normal S2 Abdomen Exam: Positive: Normal bowel sounds, Soft, Negative: Tenderness Extremity Exam: Positive: Edema (1+ ankle edema bilaterally), Negative: Tenderness Skin Exam: Negative: Rash Neuro Exam: Positive: Normal Speech, Sensation Intact, Cranial Nerves 3-12 NL Psych Exam: Positive: Mental status NL, Mood NL, Oriented x 3 Assessment /Plan Problems (1) Pulmonary emboli Status: Acute Response to Treatment: Stable Problem Text: Patient with PEs in all 5 lobes per wet read of CTA done yesterday. She had a GI bleed while on warfarin in 07/2016 and has not yet had a colonoscopy to work this up; she states her GI doctor, Dr. Acosta, wanted her to have clearance by a strategic partner development manager prior to her colonoscopy. She is at some risk for rebleed on anticoagulants, but when she bled she also had a very supratherapeutic INR of >11. - Patient was on estrogen patches due to desire to transition to female gender; these have been stopped and I discussed with her that she may not be able to go back on these. - Continue heparin gtts for easy reversibility if needed - Hemoccult all stools and monitor CBC daily - Will d/w PCP whether to restart warfarin; may need to consult GI as well on Sunday (2) History of GI bleed Status: Acute Problem Text: Monitor for signs of re-bleed (3) Hypertension Status: Chronic Response to Treatment: Stable (4) Hyperlipidemia Status: Chronic Response to Treatment: Stable (5) Diabetes mellitus Status: Chronic Response to Treatment: Stable (6) Depression Status: Chronic Response to Treatment: Stable (7) DREW (obstructive sleep apnea) Status: Chronic Response to Treatment: Stable Problem Text: Will ask patient to have family bring in her CPAP from home. (8) Sarcoidosis Status: Chronic Response to Treatment: Stable Plan/VTE VTE Prophylaxis Ordered?: Yes (heaprin gtts) VS, I&O, 24H, Fishbone Vital Signs/I&O Vital Signs Date Time Temp Pulse Resp B/P (MAP) Pulse Ox O2 Delivery O2 Flow Rate FiO2 10/01/16 04:45 97.9 70 20 130/63 (85) 95 Room Air I&O- Last 24 Hours up to 6 AM 10/01/16 06:00 Intake Total 0 ml Output Total 725 ml Balance -725 ml Laboratory Data 24H LABS Laboratory Tests 2 09/30/16 12:48: White Blood Count 5.4, Red Blood Count 4.51, Hemoglobin 12.9, Hematocrit 38.6, Mean Corpuscular Volume 85.6, Mean Corpuscular Hemoglobin 28.7, Mean Corpuscular Hemoglobin Concent 33.5, Red Cell Distribution Width 13.4, Platelet Count 206, Neutrophils (%) (Auto) 59.6, Lymphocytes (%) (Auto) 27.2, Monocytes ( %) (Auto) 7.0H, Eosinophils (%) (Auto) 4.0H, Basophils (%) (Auto) 0.6, Neutrophils # (Auto) 3.2, Lymphocytes # (Auto) 1.5, Monocytes # (Auto) 0.4, Eosinophils # (Auto) 0.2, Basophils # (Auto) 0.0, Large Unclassified Cells % 1.6 , Large Unclassified Cells # 0.1, Prothrombin Time 13.6, Prothromb Time International Ratio 1.03, Anion Gap 8, Glomerular Filtration Rate 56.3, Blood Urea Nitrogen 11, Creatinine 1.05H, Sodium Level 140, Potassium Level 4.2, Chloride Level 106, Carbon Dioxide Level 26, Calcium Level 9.6 09/30/16 23:33: Activated Partial Thromboplast Time 44.2H 10/01/16 03:02: Prothrombin Time 13.3, Prothromb Time International Ratio 1.00, Anion Gap 7L, Glomerular Filtration Rate 52.8, Blood Urea Nitrogen 11, Creatinine 1.11H, Sodium Level 142, Potassium Level 3.8, Chloride Level 108H, Carbon Dioxide Level 27, Calcium Level 9.5, Activated Partial Thromboplast Time 36.6 CBC/BMP Laboratory Tests 09/30/16 12:48 Red Blood Count 4.51, Mean Corpuscular Volume 85.6, Mean Corpuscular Hemoglobin 28.7, Mean Corpuscular Hemoglobin Concent 33.5, Red Cell Distribution Width 13.4 , Neutrophils (%) (Auto) 59.6, Lymphocytes (%) (Auto) 27.2, Monocytes (%) (Auto ) 7.0 H, Eosinophils (%) (Auto) 4.0 H, Basophils (%) (Auto) 0.6, Neutrophils # ( Auto) 3.2, Lymphocytes # (Auto) 1.5, Monocytes # (Auto) 0.4, Eosinophils # (Auto ) 0.2, Basophils # (Auto) 0.0, Calcium Level 9.6 10/01/16 03:02 Red Blood Count 4.55, Mean Corpuscular Volume 85.9, Mean Corpuscular Hemoglobin 28.7, Mean Corpuscular Hemoglobin Concent 33.4, Red Cell Distribution Width 13.2 , Calcium Level 9.5 ELVA SERRANO MD Oct 01, 2016 08:50
[2016-10-01] MEDS: FUROSEMIDE 40 MG TAB PO SCH ×2 (09:00→09:09)
[2016-10-01] MEDS: metFORMIN XR 500MG TAB *GLUCOPHAGE XR PO SCH ×2 (09:00→22:34)
[2016-10-01] MEDS: ATORVASTATIN 20 MG TAB PO SCH ×2 (09:00→09:08)
[2016-10-01] MEDS: SPIRONOLACTONE 50 MG TAB PO SCH ×2 (09:00→09:09)
[2016-10-01] MEDS: MAGNESIUM OXIDE 400 MG TAB (MAG-OX) PO SCH ×2 (09:00→09:09)
[2016-10-01] MEDS: OMEPRAZOLE 20 MG CAP PO SCH ×2 (09:09→22:36)
[2016-10-01 12:00] VITALS: BP 117/72
[2016-10-01] MEDS: HEPARIN DRIP 25,000 UNITS in APPROPRIATE DILUENT 1 EA IV SCH (14:23)
[2016-10-01 16:00] VITALS: BP 159/70
[2016-10-01] MEDS ORDERED: WARFARIN SOD 5 MG TAB PO SCH (17:00)
[2016-10-01 20:00] VITALS: BP 133/63
[2016-10-01] MEDS: QUEtiapine FUMARATE 50 MG TAB PO SCH (22:35)
[2016-10-01] MEDS: ESCITALOPRAM OXALATE 10 MG TAB (LEXAPRO) PO SCH (22:35)
[2016-10-02] VITALS (7 sets, daily range): BP systolic 122–143; BP diastolic 67–87
[2016-10-02 03:58] LABS: CALCIUM LEVEL 9.1 MG/DL (8.8-10.2); CREATININE FOR GFR 1.03 MG/DL (0.55-1.02); GLOMERULAR FILTRATION RATE 57.6 (>45); POTASSIUM SERUM 3.6 MEQ/L (3.5-5.1)
[2016-10-02 04:21] LABS: MEAN CORPUSCULAR HEMOGLOBIN 28.9 pg (27.0-33.0); MEAN CORPUSCULAR HGB CONC 33.8 g/dl (32.0-36.5); MEAN CORPUSCULAR VOLUME 85.7 fl (80.0-96.0); RED CELL DISTRIBUTION WIDTH 13.2 % (11.5-14.5); WHITE BLOOD COUNT 6.7 K/mm3 (4.0-10.0)
[2016-10-02 04:30] LABS: INR 1.08
[2016-10-02] MEDS: HEPARIN DRIP 25,000 UNITS in APPROPRIATE DILUENT 1 EA IV SCH ×2 (05:57→18:22)
--- NOTE | 2016-10-02 08:54 | IPNPDOC ---
Subjective Date Seen The patient was seen on 10/02/16. Subjective Chief Complaint/HPI The patient is a 61-year-old female admitted with a reason for visit of Pulmonary Emboli. Events since last encounter Pt denies any new issues. Denies CP, SOB, Abd pain, abnormal bleeding. Constitutional: Denies: Chills, Fever Pulmonary: Denies: Dyspnea Cardiovascular: Denies: Chest Pain Gastrointestinal: Denies: Nausea, Vomiting, Abdominal Pain Objective Physical Examination General Exam: Positive: Alert, Cooperative, No Acute Distress Eye Exam: Positive: PERRLA, Conjunctiva & lids normal ENT Exam: Positive: Atraumatic, Mucous membr. moist/pink Chest Exam: Positive: Clear to auscultation, Normal air movement, Negative: Rales, Rhonchi, Wheezing Heart Exam: Positive: Rate Normal, Regular Rhythm, Normal S1, Normal S2 Abdomen Exam: Positive: Normal bowel sounds, Soft, Negative: Tenderness Extremity Exam: Positive: Edema (1+ ankle edema bilaterally), Negative: Tenderness Skin Exam: Negative: Rash Neuro Exam: Positive: Normal Speech, Sensation Intact, Cranial Nerves 3-12 NL Psych Exam: Positive: Mental status NL, Mood NL, Oriented x 3 Assessment /Plan Problems (1) Pulmonary emboli Status: Acute Response to Treatment: Stable Problem Text: Patient with PEs in all 5 lobes per wet read of CTA done yesterday. She had a GI bleed while on warfarin in 07/2016 and has not yet had a colonoscopy to work this up; she states her GI doctor, Dr. Acosta, wanted her to have clearance by a neon sign servicer prior to her colonoscopy. She is at some risk for rebleed on anticoagulants, but when she bled she also had a very supratherapeutic INR of >11. - Patient was on estrogen patches due to desire to transition to female gender; these have been stopped and I discussed with her that she may not be able to go back on these. - Continue heparin gtts for easy reversibility if needed - Hemoccult all stools and monitor CBC daily - Will d/w PCP whether to restart warfarin; may need to consult GI as well on Sunday (2) History of GI bleed Status: Acute Problem Text: Monitor for signs of re-bleed (3) Hypertension Status: Chronic Response to Treatment: Stable Problem Specific Plan: Monitor Clinically Problem Text: On Fursemide and Spironolactone. (4) Hyperlipidemia Status: Chronic Response to Treatment: Stable Problem Text: On Lipitor. (5) Diabetes mellitus Status: Chronic Response to Treatment: Stable Problem Specific Plan: Monitor Clinically, Repeat Labs Problem Text: On Metformin. (6) Depression Status: Chronic Response to Treatment: Stable Problem Specific Plan: Monitor Clinically Problem Text: On Lexapro and Seroquel. (7) DREW (obstructive sleep apnea) Status: Chronic Response to Treatment: Stable Problem Text: Will ask patient to have family bring in her CPAP from home. (8) Sarcoidosis Status: Chronic Response to Treatment: Stable Plan/VTE VTE Prophylaxis Ordered?: Yes (heaprin gtts) VS, I&O, 24H, Fishbone Vital Signs/I&O Vital Signs Date Time Temp Pulse Resp B/P (MAP) Pulse Ox O2 Delivery O2 Flow Rate FiO2 10/02/16 08:19 Room Air 10/02/16 07:30 97.0 59 20 136/82 (100) 98 I&O- Last 24 Hours up to 6 AM 10/02/16 06:00 Intake Total 1324 ml Output Total 1975 ml Balance -651 ml Laboratory Data 24H LABS Laboratory Tests 2 10/01/16 12:51: Activated Partial Thromboplast Time 106.1H 10/01/16 12:56: Bedside Glucose (Misc Panel) 151H 10/01/16 16:24: Bedside Glucose (Misc Panel) 172H 10/01/16 19:28: Activated Partial Thromboplast Time 44.5H 10/02/16 03:31: Prothrombin Time 14.2, Prothromb Time International Ratio 1.08, Activated Partial Thromboplast Time 181.5*H, Anion Gap 6L, Glomerular Filtration Rate 57.6 , Blood Urea Nitrogen 9, Creatinine 1.03H, Sodium Level 141, Potassium Level 3.6 , Chloride Level 108H, Carbon Dioxide Level 27, Calcium Level 9.1 CBC/BMP Laboratory Tests 10/02/16 03:31 Red Blood Count 4.28, Mean Corpuscular Volume 85.7, Mean Corpuscular Hemoglobin 28.9, Mean Corpuscular Hemoglobin Concent 33.8, Red Cell Distribution Width 13.2 , Calcium Level 9.1 Declan Ozuna RPA-C Oct 02, 2016 08:54
[2016-10-02] MEDS: metFORMIN XR 500MG TAB *GLUCOPHAGE XR PO SCH ×2 (09:00→20:19)
[2016-10-02] MEDS: ATORVASTATIN 20 MG TAB PO SCH (10:41)
[2016-10-02] MEDS: OMEPRAZOLE 20 MG CAP PO SCH ×2 (10:41→20:19)
[2016-10-02] MEDS: FUROSEMIDE 40 MG TAB PO SCH (10:41)
[2016-10-02] MEDS: MAGNESIUM OXIDE 400 MG TAB (MAG-OX) PO SCH (10:42)
[2016-10-02] MEDS: SPIRONOLACTONE 50 MG TAB PO SCH (10:42)
[2016-10-02] MEDS: NYSTATIN 100,000 UNITS/GM TOPICAL PWD 15 GM TOP SCH (17:10)
[2016-10-02] MEDS: QUEtiapine FUMARATE 50 MG TAB PO SCH (20:19)
[2016-10-02] MEDS: ESCITALOPRAM OXALATE 10 MG TAB (LEXAPRO) PO SCH (20:19)
[2016-10-03 05:44] LABS: INR 1.04
[2016-10-03 05:45] LABS: MEAN CORPUSCULAR HEMOGLOBIN 29.1 pg (27.0-33.0); MEAN CORPUSCULAR HGB CONC 34.2 g/dl (32.0-36.5); MEAN CORPUSCULAR VOLUME 85.2 fl (80.0-96.0); RED CELL DISTRIBUTION WIDTH 13.6 % (11.5-14.5)
[2016-10-03 06:00] VITALS: BP 134/74
[2016-10-03 06:01] LABS: CALCIUM LEVEL 9.4 MG/DL (8.8-10.2); CREATININE FOR GFR 1.18 MG/DL (0.55-1.02); GLOMERULAR FILTRATION RATE 49.2 (>45); POTASSIUM SERUM 3.6 MEQ/L (3.5-5.1)
[2016-10-03] MEDS: HEPARIN DRIP 25,000 UNITS in APPROPRIATE DILUENT 1 EA IV SCH ×2 (08:26→22:39)
[2016-10-03] MEDS: ATORVASTATIN 20 MG TAB PO SCH (08:28)
[2016-10-03] MEDS: OMEPRAZOLE 20 MG CAP PO SCH ×2 (08:28→21:40)
[2016-10-03] MEDS: SPIRONOLACTONE 50 MG TAB PO SCH (08:28)
[2016-10-03] MEDS: FUROSEMIDE 40 MG TAB PO SCH (08:28)
[2016-10-03] MEDS: metFORMIN XR 500MG TAB *GLUCOPHAGE XR PO SCH ×2 (08:28→21:40)
[2016-10-03] MEDS: NYSTATIN 100,000 UNITS/GM TOPICAL PWD 15 GM TOP SCH (08:29)
[2016-10-03] MEDS: MAGNESIUM OXIDE 400 MG TAB (MAG-OX) PO SCH (08:29)
--- NOTE | 2016-10-03 09:26 | REP ---
CT ANGIOGRAM CHEST: 09/30/2016 COMPARISON: CT chest with contrast 09/29/2016. CLINICAL HISTORY: Abnormal contrast CT (not angiogram protocol) last night showed suspected filling defects in the pulmonary arteries. CTA needed to fully evaluate this. TECHNIQUE: Bolus of 75 mL Isovue 370 with scanning through the chest with CTA protocol. Coronal and sagittal thick slab MIP reformats were performed. FINDINGS: A few small calcified granulomas again noted in the left lower lobe. No effusion or interval change in the lung [place]. Heart is unchanged without pericardial thickening or effusion. There is no aortic aneurysm or dissection. The well opacified pulmonary arterial tree now seen to advantage with no filling defects in the main pulmonary artery, however, both right and left pulmonary arteries show thrombi at their bifurcations. On the left, there is a smaller saddle thrombus extending into both the left upper lobe and left lower lobe pulmonary artery. Further down, there are separate clots in the left medial and posterior basal segments and into the left upper lobe. In the right lower lobe, there is thrombus extending into the medial and lateral basal segment arteries and also into the right middle lobe artery. Right upper lobe artery with contrast also shows thrombus. There are no changes in the upper abdomen. IMPRESSION: 1. There is extensive pulmonary thromboembolism involving the lobar arteries for all five lobes and in many segmental arteries as well. Central/mediastinal portions of the pulmonary arteries have very little thrombus. 2. There is no effusion, acute infiltrate or parenchymal mass. A few granulomatous calcifications are noted in the left lung. 3. There is no aortic aneurysm or dissection. The right hilar prominence noted on radiograph was not associated with adenopathy in this patient with known sarcoidosis. It is solely the result of prominence of the descending pulmonary artery segment. Signed by Chris Malik MD 10/03/2016 10:27 A
[2016-10-03 14:00] VITALS: BP 132/81
[2016-10-03] MEDS: QUEtiapine FUMARATE 50 MG TAB PO SCH (21:41)
[2016-10-03] MEDS: ESCITALOPRAM OXALATE 10 MG TAB (LEXAPRO) PO SCH (21:41)
[2016-10-03 22:00] VITALS: BP 145/80
--- NOTE | 2016-10-04 01:04 | IPNPDOC ---
Subjective Date Seen The patient was seen on 10/03/16. Subjective Chief Complaint/HPI The patient is a 61-year-old female admitted with a reason for visit of Pulmonary Emboli. Events since last encounter Denies complaints. Contacted GI and cardiology regarding referrals. No bleeding. Constitutional: Denies: Chills, Fever Pulmonary: Denies: Dyspnea, Cough Cardiovascular: Denies: Chest Pain Gastrointestinal: Denies: Nausea, Vomiting, Abdominal Pain, Diarrhea, Constipation Objective Physical Examination General Exam: Positive: Alert, Cooperative, No Acute Distress Eye Exam: Positive: PERRLA, Conjunctiva & lids normal ENT Exam: Positive: Atraumatic, Mucous membr. moist/pink Chest Exam: Positive: Clear to auscultation, Normal air movement, Negative: Rales, Rhonchi, Wheezing Heart Exam: Positive: Rate Normal, Regular Rhythm, Normal S1, Normal S2 Abdomen Exam: Positive: Normal bowel sounds, Soft, Negative: Tenderness Extremity Exam: Positive: Edema (1+ ankle edema bilaterally), Negative: Tenderness Skin Exam: Negative: Rash Neuro Exam: Positive: Normal Speech, Sensation Intact, Cranial Nerves 3-12 NL Psych Exam: Positive: Mental status NL, Mood NL, Oriented x 3 Assessment /Plan Problems (1) Pulmonary emboli Status: Acute Response to Treatment: Stable Problem Text: 10/03 -- calls out to GI (and per their desire for cardiac clearance, cardiology) for scope prior to EGD and colonoscopy Patient with PEs in all 5 lobes per wet read of CTA done yesterday. She had a GI bleed while on warfarin in 07/2016 and has not yet had a colonoscopy to work this up; she states her GI doctor, Dr. Acosta, wanted her to have clearance by a habilitation assistant prior to her colonoscopy. She is at some risk for rebleed on anticoagulants, but when she bled she also had a very supratherapeutic INR of > 11. - Patient was on estrogen patches due to desire to transition to female gender; these have been stopped and I discussed with her that she may not be able to go back on these. - Continue heparin gtts for easy reversibility if needed - Hemoccult all stools and monitor CBC daily - Will d/w PCP whether to restart warfarin; may need to consult GI as well on Sunday (2) History of GI bleed Status: Acute Problem Text: Monitor for signs of re-bleed (3) Hypertension Status: Chronic Response to Treatment: Stable Problem Specific Plan: Monitor Clinically Problem Text: On Fursemide and Spironolactone. (4) Hyperlipidemia Status: Chronic Response to Treatment: Stable Problem Text: On Lipitor. (5) Diabetes mellitus Status: Chronic Response to Treatment: Stable Problem Specific Plan: Monitor Clinically, Repeat Labs Problem Text: On Metformin. (6) Depression Status: Chronic Response to Treatment: Stable Problem Specific Plan: Monitor Clinically Problem Text: On Lexapro and Seroquel. (7) DREW (obstructive sleep apnea) Status: Chronic Response to Treatment: Stable Problem Text: Will ask patient to have family bring in her CPAP from home. (8) Sarcoidosis Status: Chronic Response to Treatment: Stable Plan/VTE VTE Prophylaxis Ordered?: Yes (heaprin gtts) VS, I&O, 24H, Fishbone Vital Signs/I&O Vital Signs Date Time Temp Pulse Resp B/P (MAP) Pulse Ox O2 Delivery O2 Flow Rate FiO2 10/03/16 22:00 97.9 63 17 145/80 (101) 93 Room Air I&O- Last 24 Hours up to 6 AM 10/04/16 06:00 Intake Total 1188 ml Output Total 2200 ml Balance -1012 ml Laboratory Data 24H LABS Laboratory Tests 2 10/03/16 05:27: Prothrombin Time 13.7, Prothromb Time International Ratio 1.04, Anion Gap 8, Glomerular Filtration Rate 49.2, Blood Urea Nitrogen 12, Creatinine 1.18H, Sodium Level 140, Potassium Level 3.6, Chloride Level 106, Carbon Dioxide Level 26, Calcium Level 9.4 10/03/16 06:33: Activated Partial Thromboplast Time 70.7H CBC/BMP Laboratory Tests 10/03/16 05:27 Red Blood Count 4.37, Mean Corpuscular Volume 85.2, Mean Corpuscular Hemoglobin 29.1, Mean Corpuscular Hemoglobin Concent 34.2, Red Cell Distribution Width 13.6 , Calcium Level 9.4 Microbiology Microbiology 10/03/16 Stool Occult Blood (NAFISA) - Final, Complete 10/02/16 Stool Occult Blood (NAFISA) - Final, Complete ENDER FOURNIER DO Oct 04, 2016 01:04
[2016-10-04 06:00] VITALS: BP 124/72
[2016-10-04 06:48] LABS: MEAN CORPUSCULAR HEMOGLOBIN 28.6 pg (27.0-33.0); MEAN CORPUSCULAR HGB CONC 33.2 g/dl (32.0-36.5); MEAN CORPUSCULAR VOLUME 86.3 fl (80.0-96.0); RED CELL DISTRIBUTION WIDTH 13.4 % (11.5-14.5); WHITE BLOOD COUNT 5.8 K/mm3 (4.0-10.0)
[2016-10-04 06:52] LABS: INR 1.02
[2016-10-04 07:05] LABS: CALCIUM LEVEL 8.8 MG/DL (8.8-10.2); CREATININE FOR GFR 1.09 MG/DL (0.55-1.02); POTASSIUM SERUM 3.4 MEQ/L (3.5-5.1)
[2016-10-04] MEDS ORDERED: CYANOCOBALAMIN 500 MCG TAB PO SCH (09:00)
[2016-10-04] MEDS ORDERED: MULTIVITAMIN/MINERALS LIQUID 15ML ORAL SYRINGE PO SCH (09:00)
[2016-10-04] MEDS ORDERED: ASCORBIC ACID 500 MG TAB PO SCH (09:00)
[2016-10-04] MEDS: CALCIUM CARBONATE 500 MG CHEW U/D PO SCH ×2 (09:00→22:22)
[2016-10-04] MEDS: MAGNESIUM OXIDE 400 MG TAB (MAG-OX) PO SCH (10:13)
[2016-10-04] MEDS: OMEPRAZOLE 20 MG CAP PO SCH ×2 (10:13→22:23)
[2016-10-04] MEDS: SPIRONOLACTONE 50 MG TAB PO SCH (10:13)
[2016-10-04] MEDS: ATORVASTATIN 20 MG TAB PO SCH (10:13)
[2016-10-04] MEDS: FUROSEMIDE 40 MG TAB PO SCH (10:14)
[2016-10-04] MEDS: metFORMIN XR 500MG TAB *GLUCOPHAGE XR PO SCH ×2 (10:14→22:23)
[2016-10-04] MEDS: HEPARIN DRIP 25,000 UNITS in APPROPRIATE DILUENT 1 EA IV SCH ×2 (10:26→22:42)
[2016-10-04] MEDS ORDERED: SODIUM CHLORIDE 0.9% NASAL GEL 15MG (AYR) PRN (10:30)
[2016-10-04 14:00] VITALS: BP 135/87
[2016-10-04] MEDS: NYSTATIN 100,000 UNITS/GM TOPICAL PWD 15 GM TOP SCH (14:04)
[2016-10-04] MEDS: CYANOCOBALAMIN 500 MCG TAB PO SCH (14:05)
[2016-10-04] MEDS: ASCORBIC ACID 500 MG TAB PO SCH (14:05)
[2016-10-04] MEDS: VITAMIN D 1,000 INTERNATIONAL UNITS TABLET PO SCH (14:05)
[2016-10-04] MEDS ORDERED: POTASSIUM CHLORIDE 10 MEQ SR TABLET PO ONE (16:00)
[2016-10-04] MEDS ORDERED: WARFARIN SOD 5 MG TAB PO SCH (17:00)
[2016-10-04] MEDS: MULTIVITAMIN/MINERALS LIQUID 15ML ORAL SYRINGE PO SCH (17:33)
--- NOTE | 2016-10-04 19:35 | CR.PDOC ---
[facility] Consultation Consultation DATE OF CONSULTATION: Oct 04, 2016 at 17;30 PRIMARY CARE PHYSICIAN: Lupe Pugh PA-C REFERRING PROVIDER: Dr. Lopez REASON FOR CONSULTATION/CHIEF COMPLAINT: H/o Gi bleeding. . HISTORY OF PRESENT ILLNESS: 61 year old woman ( Biologic male ), with DM, HTN, DREW, Morbid obesity and h/o gastric bypass, h/o DVT and PE and h/o Gi bleeding in past, was admitted again for SOB and diagnosed with Multiple PE on CT Chest and currently being treated with anticoagulation. Gi consulted for h/o GI bleeding and if endoscopy can be done in-patient. Patient denies any dark stools or blood in stools. has been taking PPI since his episode of Gi bleeding and denies any Gi symptoms. Pertinent negative GI symptoms: Patient denies nausea, vomiting, diarrhea, abdominal pain, loss of appetite, early satiety or unintentional weight loss. No history of hematemesis, melena or hematochezia. Patient reports regular bowel movements. Review of Systems: GI: as stated above CVS and RS: as above. UNDERGROUND ROOF BOLTER: No dizziness, usually ambulated with rollator. Psych: No sleep alteration, No depression, Hematology: No bruising, No gum bleeding, Musculoskeletal: No joint pain, : No hematuria, No burning sensation of the urine ENT: No ear discharge/ pain, No dysphagia. Eyes: No photophobia. ALLERGIES: NKDA. HOME MEDICATIONS: reviewed. MEDICAL H/O: As above. SURGICAL H/O: Gastric bypass. SOCIAL H/O: Denies Alcohol, smoking, IVDA/ drugs. FAMILY H/O OF GI CANCERS - Colon cancer in father. PRIOR ENDOSCOPIES: --- EGD - None. --- Colonoscopy None PRIOR GI EVALUATION: Seen in Gi clinic and was planned for elective endoscopies. Exam: Vitals: reviewed GENERAL: Alert and oriented x 3, HEENT: NO pallor, no icterus. Normal oropharynx, NO cervical lymph nodes. CHEST: symmetric with bilateral clear air entry, CVS: S1, S2 heard, normal, no murmurs . ABDOMEN: obese,,, soft, non-tender, no palpable masses, normal bowel sounds heard. RECTAL EXAM: Patient refused / Deferred at this time in view of scheduled colonoscopy. EXTREMITIES: 3+ pitting pedal edema, pulses palpable. UNDERGROUND ROOF BOLTER: no focal motor or sensory deficits. Moves all extremities Labs: reviewed. ASSESSMENT: 1. H/o Melena - possible upper Gi bleeding but resolved with conservative management in past currently NO overt or occult blood loss. Patient compliant with PPI. 2. Elevated risk for colon polyps or cancer in view of family history. 3) morbid obesity Recommendations: -- Educated patient the risk of GI bleeding from anticoagulants. In view of Acute and multiple PE the benefits of anticoagulants outweigh the risks of bleeding at this time. Patient verbalized understanding and agreed for the procedure. monitor for sign of bleeding. -- Also in vie wof acute PE the risk of anesthesia for endosocpic procedure is elevated and discussed the same with patient. -- patient to be followed with cardiology and PMD after discharge and after atleast 12 weeks on anticoagulants will consider elective endoscopies after cardiac clearance. -- Please give IV pantoprazole for 24 hours and then switch to Omeprazole once daily - ( 1/2 hr before breakfast) for atleast 8 weeks -- Recall GI if any change in status. Plan of care discussed with patient and primary team. Allergies Coded Allergies: No Known Allergies (Verified , 09/30/16) Home Medications Scheduled Ascorbic Acid (Vitamin C) 500 Mg Tab, 500 MG PO DAILY, (Reported) TAKES AT NOON Atorvastatin Calcium (Atorvastatin Calcium) 40 Mg Tab, 40 MG PO DAILY, (Reported ) Biotin (Vitamin H) (Biotin) 1,000 Mcg Tab, 2,000 MCG PO DAILY, (Reported) Calcium Citrate (Calcium Citrate) 250 Mg Tab, 250 MG PO BID, (Reported) Cyanocobalamin (Vitamin B-12) 1,000 Mcg Tab, 1,000 MCG PO DAILY, (Reported) TAKES AT NOON Escitalopram Oxalate (Escitalopram Oxalate) 20 Mg Tab, 20 MG PO QHS, (Reported) Estradiol (Estradiol) 0.05 Mg Tdsy, 0.05 MG TD QWEEK, (Reported) CHANGES AND REAPPLIES EVERY SUNDAY Furosemide (Furosemide) 40 Mg Tab, 40 MG PO DAILY, (Reported) Magnesium Oxide (Magnesium Oxide) 400 Mg Tab, 400 MG PO DAILY, (Reported) Metformin Hydrochloride (Metformin HCl ER) 500 Mg Tab, 1,000 MG PO BID, ( Reported) Misoprostol (Cytotec) 100 Mcg Tab, 100 MCG PO BID, (Reported) PRESCRIBED QID, PATIENT ONLY TAKES BID Multivitamins (Multivitamin Adults) 1 Tab Tab, 1 TAB PO DAILY, (Reported) Omeprazole (Omeprazole) 40 Mg Cap, 40 MG PO BID, (Reported) Quetiapine Fumerate (Seroquel) 50 Mg Tab, 50 MG PO QHS, (Reported) Spironolactone (Spironolactone) 50 Mg Tab, 50 MG PO DAILY, (Reported) Vitamin D (Vitamin D) 2,000 Unit Cap, 2,000 UNIT PO DAILY, (Reported) Scheduled PRN Albuterol Sulfate (Ventolin Hfa) 200 Puff/8 Gm Aers, 2 PUFF INH Q4H PRN for SHORTNESS OF BREATH, (Reported) Calcipotriene (Calcipotriene) 1 Pow Pow, 1 POW TOP BID PRN for RASH/ITCHING, ( Reported) APPLY TO SKIN FOLDS Nystatin (Nystatin) 100,000 Unit/Gm Cre, 1 DOSE TOP BID PRN for RASH/ITCHING, ( Reported) APPLY TO SKIN FOLDS Simethicone (Gas-X) 80 Mg Chw, 80 MG PO PRN PRN for GAS PAIN, (Reported) VILMA ESPINOZA MD Oct 04, 2016 19:35
[2016-10-04 22:00] VITALS: BP 130/80
[2016-10-04] MEDS: ESCITALOPRAM OXALATE 10 MG TAB (LEXAPRO) PO SCH (22:23)
[2016-10-04] MEDS: QUEtiapine FUMARATE 50 MG TAB PO SCH (22:24)
--- NOTE | 2016-10-05 01:27 | IPNPDOC ---
Subjective Date Seen The patient was seen on 10/04/16. Subjective Chief Complaint/HPI The patient is a 61-year-old female admitted with a reason for visit of Pulmonary Emboli. Events since last encounter Case has been discussed with both cardiology and GI; GI will see the patient but favored scopes as an outpatient after several weeks. Patient remains comfortable. Had minor epistaxis today. Denies any GI complaints. Discussed ongoing anticoagulation. Constitutional: Denies: Chills, Fever Skin: Denies: Rash Pulmonary: Denies: Dyspnea, Cough Cardiovascular: Denies: Chest Pain Gastrointestinal: Denies: Nausea, Vomiting, Diarrhea, Constipation, Melena, Hematochezia Hematologic: Denies: Bruising Objective Physical Examination General Exam: Positive: Alert, Cooperative, No Acute Distress Eye Exam: Positive: PERRLA, Conjunctiva & lids normal ENT Exam: Positive: Atraumatic, Mucous membr. moist/pink Chest Exam: Positive: Clear to auscultation, Normal air movement, Negative: Rales, Rhonchi, Wheezing Heart Exam: Positive: Rate Normal, Regular Rhythm, Normal S1, Normal S2 Abdomen Exam: Positive: Normal bowel sounds, Soft, Negative: Tenderness Extremity Exam: Positive: Edema (1+ ankle edema bilaterally), Negative: Tenderness Skin Exam: Negative: Rash Neuro Exam: Positive: Normal Speech, Sensation Intact, Cranial Nerves 3-12 NL Psych Exam: Positive: Mental status NL, Mood NL, Oriented x 3 Assessment /Plan Problems (1) Pulmonary emboli Status: Acute Response to Treatment: Stable Problem Text: 10/04 -- Discussed with consultants and patient. Ms. Marin prefers warfarin for anticoagulation for ease of reversal. Began warfarin. 10/03 -- calls out to GI (and per their desire for cardiac clearance, cardiology) for scope prior to EGD and colonoscopy Patient with PEs in all 5 lobes per wet read of CTA done yesterday. She had a GI bleed while on warfarin in 07/2016 and has not yet had a colonoscopy to work this up; she states her GI doctor, Dr. Acosta, wanted her to have clearance by a consulting sales executive prior to her colonoscopy. She is at some risk for rebleed on anticoagulants, but when she bled she also had a very supratherapeutic INR of > 11. - Patient was on estrogen patches due to desire to transition to female gender; these have been stopped and I discussed with her that she may not be able to go back on these. - Continue heparin gtts for easy reversibility if needed - Hemoccult all stools and monitor CBC daily - Will d/w PCP whether to restart warfarin; may need to consult GI as well on Sunday (2) History of GI bleed Status: Acute Problem Text: Monitor for signs of re-bleed (3) Hypertension Status: Chronic Response to Treatment: Stable Problem Specific Plan: Monitor Clinically Problem Text: On Fursemide and Spironolactone. (4) Hyperlipidemia Status: Chronic Response to Treatment: Stable Problem Text: On Lipitor. (5) Diabetes mellitus Status: Chronic Response to Treatment: Stable Problem Specific Plan: Monitor Clinically, Repeat Labs Problem Text: On Metformin. (6) Depression Status: Chronic Response to Treatment: Stable Problem Specific Plan: Monitor Clinically Problem Text: On Lexapro and Seroquel. (7) DREW (obstructive sleep apnea) Status: Chronic Response to Treatment: Stable Problem Text: Will ask patient to have family bring in her CPAP from home. (8) Sarcoidosis Status: Chronic Response to Treatment: Stable Plan/VTE VTE Prophylaxis Ordered?: Yes (heaprin gtts) VS, I&O, 24H, Fishbone Vital Signs/I&O Vital Signs Date Time Temp Pulse Resp B/P (MAP) Pulse Ox O2 Delivery O2 Flow Rate FiO2 10/04/16 22:20 Room Air 10/04/16 22:00 97.7 71 16 130/80 (97) 98 I&O- Last 24 Hours up to 6 AM 10/05/16 05:59 Intake Total 1520 ml Output Total 2375 ml Balance -855 ml Laboratory Data 24H LABS Laboratory Tests 2 10/04/16 05:47: Prothrombin Time 13.5, Prothromb Time International Ratio 1.02, Activated Partial Thromboplast Time 79.2H, Anion Gap 11, Glomerular Filtration Rate 54.0, Blood Urea Nitrogen 11, Creatinine 1.09H, Sodium Level 143, Potassium Level 3.4L , Chloride Level 108H, Carbon Dioxide Level 24, Calcium Level 8.8 CBC/BMP Laboratory Tests 10/04/16 05:47 Red Blood Count 4.34, Mean Corpuscular Volume 86.3, Mean Corpuscular Hemoglobin 28.6, Mean Corpuscular Hemoglobin Concent 33.2, Red Cell Distribution Width 13.4 , Calcium Level 8.8 Microbiology Microbiology 10/04/16 Stool Occult Blood (NAFISA) - Final, Complete 10/03/16 Stool Occult Blood (NAFISA) - Final, Complete 10/02/16 Stool Occult Blood (NAFISA) - Final, Complete ENDER FOURNIER DO Oct 05, 2016 01:26
[2016-10-05] MEDS ORDERED: PANTOPRAZOLE 40MG INJ (PROTONIX) (C9113) IV ONE ×2 (01:30→06:00)
[2016-10-05 06:00] VITALS: BP 152/84
[2016-10-05 06:18] LABS: MEAN CORPUSCULAR HEMOGLOBIN 28.7 pg (27.0-33.0); MEAN CORPUSCULAR HGB CONC 33.5 g/dl (32.0-36.5); MEAN CORPUSCULAR VOLUME 85.9 fl (80.0-96.0); RED CELL DISTRIBUTION WIDTH 13.7 % (11.5-14.5); WHITE BLOOD COUNT 6.1 K/mm3 (4.0-10.0)
[2016-10-05 06:24] LABS: INR 1.01
[2016-10-05 06:33] LABS: CALCIUM LEVEL 9.2 MG/DL (8.8-10.2); CREATININE FOR GFR 1.16 MG/DL (0.55-1.02); GLOMERULAR FILTRATION RATE 50.2 (>45); POTASSIUM SERUM 3.4 MEQ/L (3.5-5.1)
[2016-10-05] MEDS: metFORMIN XR 500MG TAB *GLUCOPHAGE XR PO SCH ×2 (11:10→22:40)
[2016-10-05] MEDS: SPIRONOLACTONE 50 MG TAB PO SCH (11:10)
[2016-10-05] MEDS: CALCIUM CARBONATE 500 MG CHEW U/D PO SCH ×2 (11:10→22:41)
[2016-10-05] MEDS: HEPARIN DRIP 25,000 UNITS in APPROPRIATE DILUENT 1 EA IV SCH (11:11)
[2016-10-05] MEDS: VITAMIN D 1,000 INTERNATIONAL UNITS TABLET PO SCH (11:12)
[2016-10-05] MEDS: ASCORBIC ACID 500 MG TAB PO SCH (11:12)
[2016-10-05] MEDS: MAGNESIUM OXIDE 400 MG TAB (MAG-OX) PO SCH (11:12)
[2016-10-05] MEDS: ATORVASTATIN 20 MG TAB PO SCH (11:12)
[2016-10-05] MEDS: CYANOCOBALAMIN 500 MCG TAB PO SCH (11:12)
[2016-10-05] MEDS: NYSTATIN 100,000 UNITS/GM TOPICAL PWD 15 GM TOP SCH ×2 (11:13→22:44)
[2016-10-05] MEDS: FUROSEMIDE 40 MG TAB PO SCH (11:13)
[2016-10-05] MEDS: MULTIVITAMIN/MINERALS LIQUID 15ML ORAL SYRINGE PO SCH (11:13)
[2016-10-05] MEDS: POTASSIUM CHLORIDE 10 MEQ SR TABLET PO SCH (11:19)
[2016-10-05 14:00] VITALS: BP 129/79
[2016-10-05] MEDS ORDERED: WARFARIN SOD 7.5 MG TAB PO SCH (17:00)
[2016-10-05 22:00] VITALS: BP 141/80
[2016-10-05] MEDS: QUEtiapine FUMARATE 50 MG TAB PO SCH (22:40)
[2016-10-05] MEDS: ESCITALOPRAM OXALATE 10 MG TAB (LEXAPRO) PO SCH (22:42)
[2016-10-06] MEDS: HEPARIN DRIP 25,000 UNITS in APPROPRIATE DILUENT 1 EA IV SCH ×2 (01:33→14:01)
--- NOTE | 2016-10-06 02:31 | IPNPDOC ---
Subjective Date Seen The patient was seen on 10/05/16. Subjective Chief Complaint/HPI The patient is a 61-year-old female admitted with a reason for visit of Pulmonary Emboli. Events since last encounter INR today actually lower than yesterday despite starting on warfarin. Patient is feeling well. Discussed anticoagulation. Constitutional: Denies: Chills, Fever Skin: Denies: Rash Pulmonary: Denies: Dyspnea, Cough Cardiovascular: Denies: Chest Pain, Palpitations Gastrointestinal: Denies: Nausea, Vomiting, Diarrhea, Constipation Objective Physical Examination General Exam: Positive: Alert, Cooperative, No Acute Distress Eye Exam: Positive: PERRLA, Conjunctiva & lids normal ENT Exam: Positive: Atraumatic, Mucous membr. moist/pink Chest Exam: Positive: Clear to auscultation, Normal air movement Heart Exam: Positive: Rate Normal, Regular Rhythm, Normal S1, Normal S2 Abdomen Exam: Positive: Normal bowel sounds, Soft Extremity Exam: Positive: Edema Skin Exam: Negative: Rash Neuro Exam: Positive: Normal Speech, Sensation Intact, Cranial Nerves 3-12 NL Psych Exam: Positive: Mental status NL, Mood NL, Oriented x 3 Assessment /Plan Problems (1) Pulmonary emboli Status: Acute Response to Treatment: Stable Problem Text: 10/05 -- Increased warfarin. Plan DC home on Lovenox bridge with warfarin when we have a dose of warfarin that begins to shift INR. Discussed close follow up of INR with patient, and she agrees. 10/04 -- Discussed with consultants and patient. Ms. Marin prefers warfarin for anticoagulation for ease of reversal. Began warfarin. 10/03 -- calls out to GI (and per their desire for cardiac clearance, cardiology) for scope prior to EGD and colonoscopy Patient with PEs in all 5 lobes per wet read of CTA done yesterday. She had a GI bleed while on warfarin in 07/2016 and has not yet had a colonoscopy to work this up; she states her GI doctor, Dr. Acosta, wanted her to have clearance by a snap shearer prior to her colonoscopy. She is at some risk for rebleed on anticoagulants, but when she bled she also had a very supratherapeutic INR of > 11. - Patient was on estrogen patches due to desire to transition to female gender; these have been stopped and I discussed with her that she may not be able to go back on these. - Continue heparin gtts for easy reversibility if needed - Hemoccult all stools and monitor CBC daily - Will d/w PCP whether to restart warfarin; may need to consult GI as well on Sunday (2) History of GI bleed Status: Acute Problem Text: Monitor for signs of re-bleed (3) Hypertension Status: Chronic Response to Treatment: Stable Problem Specific Plan: Monitor Clinically Problem Text: On Fursemide and Spironolactone. (4) Hyperlipidemia Status: Chronic Response to Treatment: Stable Problem Text: On Lipitor. (5) Diabetes mellitus Status: Chronic Response to Treatment: Stable Problem Specific Plan: Monitor Clinically, Repeat Labs Problem Text: On Metformin. (6) Depression Status: Chronic Response to Treatment: Stable Problem Specific Plan: Monitor Clinically Problem Text: On Lexapro and Seroquel. (7) DREW (obstructive sleep apnea) Status: Chronic Response to Treatment: Stable Problem Text: Will ask patient to have family bring in her CPAP from home. (8) Sarcoidosis Status: Chronic Response to Treatment: Stable Plan/VTE VTE Prophylaxis Ordered?: Yes (heaprin gtts) VS, I&O, 24H, [facility] Vital Signs/I&O Vital Signs Date Time Temp Pulse Resp B/P (MAP) Pulse Ox O2 Delivery O2 Flow Rate FiO2 10/05/16 22:41 Room Air 10/05/16 22:00 98.3 80 18 141/80 (100) 97 I&O- Last 24 Hours up to 6 AM 10/06/16 06:00 Intake Total 1888 ml Output Total 2150 ml Balance -262 ml Laboratory Data 24H LABS Laboratory Tests 2 10/05/16 05:44: Prothrombin Time 13.4, Prothromb Time International Ratio 1.01, Activated Partial Thromboplast Time 72.7H, Anion Gap 11, Glomerular Filtration Rate 50.2, Blood Urea Nitrogen 13, Creatinine 1.16H, Sodium Level 142, Potassium Level 3.4L , Chloride Level 107, Carbon Dioxide Level 24, Calcium Level 9.2 CBC/BMP Laboratory Tests 10/05/16 05:44 Red Blood Count 4.20, Mean Corpuscular Volume 85.9, Mean Corpuscular Hemoglobin 28.7, Mean Corpuscular Hemoglobin Concent 33.5, Red Cell Distribution Width 13.7 , Calcium Level 9.2 Microbiology Microbiology 10/05/16 Stool Occult Blood (NAFISA) - Final, Complete 10/04/16 Stool Occult Blood (NAFISA) - Final, Complete 10/03/16 Stool Occult Blood (NAFISA) - Final, Complete 10/02/16 Stool Occult Blood (NAFISA) - Final, Complete ENDER FOURNIER DO Oct 06, 2016 02:31
[2016-10-06 06:00] VITALS: BP 157/80
[2016-10-06 06:10] LABS: MEAN CORPUSCULAR HEMOGLOBIN 28.6 pg (27.0-33.0); MEAN CORPUSCULAR HGB CONC 33.1 g/dl (32.0-36.5); MEAN CORPUSCULAR VOLUME 86.3 fl (80.0-96.0); RED CELL DISTRIBUTION WIDTH 13.7 % (11.5-14.5); WHITE BLOOD COUNT 6.4 K/mm3 (4.0-10.0)
[2016-10-06 06:22] LABS: CALCIUM LEVEL 9.5 MG/DL (8.8-10.2); CREATININE FOR GFR 1.12 MG/DL (0.55-1.02); GLOMERULAR FILTRATION RATE 52.3 (>45); POTASSIUM SERUM 3.5 MEQ/L (3.5-5.1)
[2016-10-06 06:33] LABS: INR 1.07
[2016-10-06] MEDS: MAGNESIUM OXIDE 400 MG TAB (MAG-OX) PO SCH (09:42)
[2016-10-06] MEDS: OMEPRAZOLE 20 MG CAP PO SCH (09:42)
[2016-10-06] MEDS: ATORVASTATIN 20 MG TAB PO SCH (09:42)
[2016-10-06] MEDS: CALCIUM CARBONATE 500 MG CHEW U/D PO SCH ×2 (09:42→20:36)
[2016-10-06] MEDS: POTASSIUM CHLORIDE 10 MEQ SR TABLET PO SCH (09:43)
[2016-10-06] MEDS: FUROSEMIDE 40 MG TAB PO SCH (09:43)
[2016-10-06] MEDS: SPIRONOLACTONE 50 MG TAB PO SCH (09:43)
[2016-10-06] MEDS: metFORMIN XR 500MG TAB *GLUCOPHAGE XR PO SCH ×2 (09:44→20:37)
--- NOTE | 2016-10-06 10:26 | IPNPDOC ---
Subjective Date Seen The patient was seen on 10/06/16. Subjective Chief Complaint/HPI The patient is a 61-year-old female admitted with a reason for visit of Pulmonary Emboli. Events since last encounter Denies c/o. INR remains subtherapeutic. Constitutional: Denies: Chills, Fever, Night Sweats Skin: Denies: Rash, Lesions, Breakdown Pulmonary: Denies: Dyspnea, Cough Cardiovascular: Denies: Chest Pain, Palpitations, Orthopnea, Paroxysmal Noc. Dyspnea, Lt Headedness Gastrointestinal: Denies: Nausea, Vomiting, Abdominal Pain, Diarrhea, Constipation Objective Physical Examination General Exam: Positive: Alert, Cooperative, No Acute Distress Eye Exam: Positive: PERRLA, Conjunctiva & lids normal ENT Exam: Positive: Atraumatic, Mucous membr. moist/pink Chest Exam: Positive: Clear to auscultation, Normal air movement Heart Exam: Positive: Rate Normal, Regular Rhythm, Normal S1, Normal S2 Abdomen Exam: Positive: Normal bowel sounds, Soft Extremity Exam: Positive: Edema Skin Exam: Negative: Rash Neuro Exam: Positive: Normal Speech, Sensation Intact, Cranial Nerves 3-12 NL Psych Exam: Positive: Mental status NL, Mood NL, Oriented x 3 Assessment /Plan Problems (1) Pulmonary emboli Status: Acute Response to Treatment: Stable Problem Text: 10/06/16: Warfarin increased to 10 mg today. repeat INR in am. Plan DC home on Lovenox bridge with warfarin when we have a dose of warfarin that begins to shift INR. Discussed close follow up of INR with patient, and she agrees. 10/05 -- Increased warfarin. Plan DC home on Lovenox bridge with warfarin when we have a dose of warfarin that begins to shift INR. Discussed close follow up of INR with patient, and she agrees. 10/04 -- Discussed with consultants and patient. Ms. Marin prefers warfarin for anticoagulation for ease of reversal. Began warfarin. 10/03 -- calls out to GI (and per their desire for cardiac clearance, cardiology) for scope prior to EGD and colonoscopy Patient with PEs in all 5 lobes per wet read of CTA done yesterday. She had a GI bleed while on warfarin in 07/2016 and has not yet had a colonoscopy to work this up; she states her GI doctor, Dr. Acosta, wanted her to have clearance by a town justice prior to her colonoscopy. She is at some risk for rebleed on anticoagulants, but when she bled she also had a very supratherapeutic INR of > 11. - Patient was on estrogen patches due to desire to transition to female gender; these have been stopped and I discussed with her that she may not be able to go back on these. - Continue heparin gtts for easy reversibility if needed - Hemoccult all stools and monitor CBC daily - Will d/w PCP whether to restart warfarin; may need to consult GI as well on Sunday (2) History of GI bleed Status: Acute Problem Text: Monitor for signs of re-bleed (3) Hypertension Status: Chronic Response to Treatment: Stable Problem Specific Plan: Monitor Clinically Problem Text: On Fursemide and Spironolactone. (4) Hyperlipidemia Status: Chronic Response to Treatment: Stable Problem Text: On Lipitor. (5) Diabetes mellitus Status: Chronic Response to Treatment: Stable Problem Specific Plan: Monitor Clinically, Repeat Labs Problem Text: On Metformin. (6) Depression Status: Chronic Response to Treatment: Stable Problem Specific Plan: Monitor Clinically Problem Text: On Lexapro and Seroquel. (7) DREW (obstructive sleep apnea) Status: Chronic Response to Treatment: Stable Problem Text: Will ask patient to have family bring in her CPAP from home. (8) Sarcoidosis Status: Chronic Response to Treatment: Stable Plan/VTE VTE Prophylaxis Ordered?: Yes (heaprin gtts) VS, I&O, 24H, Fishbone Vital Signs/I&O Vital Signs Date Time Temp Pulse Resp B/P (MAP) Pulse Ox O2 Delivery O2 Flow Rate FiO2 10/06/16 06:00 97.9 73 18 157/80 (105) 96 Room Air I&O- Last 24 Hours up to 6 AM 10/06/16 05:59 Intake Total 1983 ml Output Total 2150 ml Balance -167 ml Laboratory Data 24H LABS Laboratory Tests 2 10/06/16 05:19: Prothrombin Time 14.1, Prothromb Time International Ratio 1.07, Activated Partial Thromboplast Time 69.4H, Anion Gap 10, Glomerular Filtration Rate 52.3, Blood Urea Nitrogen 13, Creatinine 1.12H, Sodium Level 143, Potassium Level 3.5 , Chloride Level 108H, Carbon Dioxide Level 25, Calcium Level 9.5 CBC/BMP Laboratory Tests 8/11/17 05:19 Red Blood Count 4.36, Mean Corpuscular Volume 86.3, Mean Corpuscular Hemoglobin 28.6, Mean Corpuscular Hemoglobin Concent 33.1, Red Cell Distribution Width 13.7 , Calcium Level 9.5 Microbiology Microbiology 10/05/16 Stool Occult Blood (NAFISA) - Final, Complete 10/04/16 Stool Occult Blood (NAFISA) - Final, Complete 10/03/16 Stool Occult Blood (NAFISA) - Final, Complete 10/02/16 Stool Occult Blood (NAFISA) - Final, Complete Thi Alexandre [facility] Oct 06, 2016 10:26
[2016-10-06] MEDS: ASCORBIC ACID 500 MG TAB PO SCH (12:26)
[2016-10-06] MEDS: CYANOCOBALAMIN 500 MCG TAB PO SCH (12:26)
[2016-10-06] MEDS: MULTIVITAMINS CHILDREN'S CHEWABLE TABLET PO SCH (12:26)
[2016-10-06] MEDS: VITAMIN D 1,000 INTERNATIONAL UNITS TABLET PO SCH (12:26)
[2016-10-06 14:00] VITALS: BP 142/80
[2016-10-06] MEDS ORDERED: WARFARIN SOD 5 MG TAB PO ONE (17:00)
[2016-10-06] MEDS: ESCITALOPRAM OXALATE 10 MG TAB (LEXAPRO) PO SCH (20:37)
[2016-10-06 22:00] VITALS: BP 137/67
[2016-10-06] MEDS: QUEtiapine FUMARATE 50 MG TAB PO SCH (22:27)
[2016-10-07] MEDS: HEPARIN DRIP 25,000 UNITS in APPROPRIATE DILUENT 1 EA IV SCH ×2 (02:29→13:34)
[2016-10-07 05:56] LABS: INR 1.26; MEAN CORPUSCULAR HEMOGLOBIN 28.7 pg (27.0-33.0); MEAN CORPUSCULAR HGB CONC 33.2 g/dl (32.0-36.5); MEAN CORPUSCULAR VOLUME 86.4 fl (80.0-96.0); WHITE BLOOD COUNT 6.2 K/mm3 (4.0-10.0)
[2016-10-07 06:00] VITALS: BP 137/86
[2016-10-07 06:07] LABS: CALCIUM LEVEL 9.7 MG/DL (8.8-10.2); CREATININE FOR GFR 1.19 MG/DL (0.55-1.02); GLOMERULAR FILTRATION RATE 48.8 (>45); POTASSIUM SERUM 3.6 MEQ/L (3.5-5.1)
[2016-10-07 09:31] VITALS: BP 126/94
[2016-10-07] MEDS: SPIRONOLACTONE 50 MG TAB PO SCH (09:52)
[2016-10-07] MEDS: metFORMIN XR 500MG TAB *GLUCOPHAGE XR PO SCH (09:53)
[2016-10-07] MEDS: FUROSEMIDE 40 MG TAB PO SCH (09:53)
[2016-10-07] MEDS: POTASSIUM CHLORIDE 10 MEQ SR TABLET PO SCH (09:54)
[2016-10-07] MEDS: MAGNESIUM OXIDE 400 MG TAB (MAG-OX) PO SCH (09:54)
[2016-10-07] MEDS: ATORVASTATIN 20 MG TAB PO SCH (09:54)
[2016-10-07] MEDS: OMEPRAZOLE 20 MG CAP PO SCH (09:55)
[2016-10-07] MEDS: CALCIUM CARBONATE 500 MG CHEW U/D PO SCH (09:55)
[2016-10-07] MEDS: NYSTATIN 100,000 UNITS/GM TOPICAL PWD 15 GM TOP SCH (09:56)
[2016-10-07 12:00] VITALS: BP 124/88
[2016-10-07] MEDS: ASCORBIC ACID 500 MG TAB PO SCH (12:02)
[2016-10-07] MEDS: MULTIVITAMINS CHILDREN'S CHEWABLE TABLET PO SCH (12:02)
[2016-10-07] MEDS: VITAMIN D 1,000 INTERNATIONAL UNITS TABLET PO SCH (12:02)
[2016-10-07] MEDS: CYANOCOBALAMIN 500 MCG TAB PO SCH (12:02)
[2016-10-07 14:00] VITALS: BP 131/81
[2016-10-07] MEDS ORDERED: [UNRECOGNIZED DRUG - CODE] SC (15:12)
--- NOTE | 2016-10-07 15:16 | DS.PDOC ---
Discharge Summary General Date of Admission Sep 30, 2016 at 17:15 Date of Discharge 10/07/16 Primary Care Physician: CYNTHIA PUGH PA-C [facility] Attending Physician: CHELITA SHELBY MD Specialist/Consultants Involve: VILMA ESPINOZA MD Discharge Summary PROCEDURES PERFORMED DURING STAY: None ADMITTING DIAGNOSES: 1. Pulmonary emboli - extensive with small saddle embolus 2. History of GI bleeding with supratherapeutic INR 3. Hypertension 4. Hyperlipidemia 5. Diabetes 6. Depression 7. DREW 8. Sarcoidosis DISCHARGE DIAGNOSES: 1. Pulmonary emboli - extensive 2. History of GI bleeding with supratherapeutic INR 3. Hypertension 4. Hyperlipidemia 5. Diabetes 6. Depression 7. DREW 8. Sarcoidosis COMPLICATIONS/CHIEF COMPLAINT: Pulmonary Emboli. HISTORY OF PRESENT ILLNESS/ HPI Patient is a 61-year-old [id number], who identifies as female, who presented 10/01/2016 with multiple pulmonary emboli. 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 Patient remained asymptomatic throughout her stay. She was treated with heparin drip, and transition to twice a day Lovenox. GI was consulted for history of GI bleeding. However, they felt risks of colonoscopy to be too great at this time. They recommended that she stabilized on Coumadin for 12 weeks. Upon discharge, it was recommended that she stop estrogen patches. She was instructed to follow-up with Cynthia Pugh on Sunday. At the time of discharge, the patient reported feeling well and denied shortness of breath or dyspnea. She was breathing well on room air, and vitals were stable. DISCHARGE MEDICATIONS: Please see below. ALLERGIES: Please see below. PHYSICAL EXAMINATION ON DISCHARGE: VITAL SIGNS: Please see below. GENERAL: Obese, alert, comfortable, no acute distress HEENT: Sclerae clear, moist mucous membranes, no JVD NECK: Increased neck diameter CARDIOVASCULAR EXAMINATION: Regular rate and rhythm, S1, S2 RESPIRATORY EXAMINATION: Clear bilaterally to auscultation, no wheezes, no rales , no rhonchi ABDOMINAL EXAMINATION: Obese, soft, nontender, + bowel sounds EXTREMITIES: No edema SKIN: Warm and dry NEUROLOGICAL EXAMINATION: Alert and oriented 3 PSYCHIATRIC EXAMINATION: Normal mood and affect LABORATORY DATA: Please see below. IMAGING: CT angios showed few small calcified granulomas in the left lower lobe , no effusions or interval changes. However, extensive pulmonary emboli involving the lobar arteries for all 5 lobes and many segmental arteries as well were noted. PROGNOSIS: Fair ACTIVITY: As tolerated. DIET: Carb controlled. DISCHARGE PLAN: Discharge to home with follow-up to PCP; patient declines [facility] to assist with INR checks DISPOSITION: Home with self-care DISCHARGE INSTRUCTIONS: 1. Coumadin 10 mg daily for 2 days 2. Lovenox 150 mg IM twice a day for 7 days or until Coumadin is therapeutic 3. Follow-up with Cynthia Pugh on Sunday ITEMS TO FOLLOWUP ON ON OUTPATIENT: 1. Recommend outpatient pulmonary consult for sarcoid and extensive PEs 2. Recommended cessation of all estrogen therapies DISCHARGE CONDITION: Stable. TIME SPENT ON DISCHARGE: Greater than 30 minutes. Vital Signs/I&Os Vital Signs Date Time Temp Pulse Resp B/P (MAP) Pulse Ox O2 Delivery O2 Flow Rate FiO2 10/07/16 12:00 97.8 76 12 124/88 (100) 98 Room Air I&O- Last 24 Hours up to 6 AM 10/07/16 06:00 Intake Total 2490 ml Output Total 3000 ml Balance -510 ml Laboratory Data Labs 24H Laboratory Tests 2 10/07/16 05:15: Prothrombin Time 16.0H, Prothromb Time International Ratio 1.26, Activated Partial Thromboplast Time 88.7H, Anion Gap 9, Glomerular Filtration Rate 48.8, Blood Urea Nitrogen 15, Creatinine 1.19H, Sodium Level 139, Potassium Level 3.6 , Chloride Level 105, Carbon Dioxide Level 25, Calcium Level 9.7 CBC/BMP Laboratory Tests 10/07/16 05:15 Red Blood Count 4.35, Mean Corpuscular Volume 86.4, Mean Corpuscular Hemoglobin 28.7, Mean Corpuscular Hemoglobin Concent 33.2, Red Cell Distribution Width 14.0 , Calcium Level 9.7 Microbiology Microbiology 10/06/16 Stool Occult Blood (NAFISA) - Final, Complete 10/05/16 Stool Occult Blood (NAFISA) - Final, Complete 10/04/16 Stool Occult Blood (NAFISA) - Final, Complete 10/03/16 Stool Occult Blood (NAFISA) - Final, Complete 10/02/16 Stool Occult Blood (NAFISA) - Final, Complete Discharge Medications Scheduled Ascorbic Acid (Vitamin C) 500 Mg Tab, 500 MG PO DAILY, (Reported) TAKES AT NOON Atorvastatin Calcium (Atorvastatin Calcium) 40 Mg Tab, 40 MG PO DAILY, (Reported ) Biotin (Vitamin H) (Biotin) 1,000 Mcg Tab, 2,000 MCG PO DAILY, (Reported) Calcium Citrate (Calcium Citrate) 250 Mg Tab, 250 MG PO BID, (Reported) Cyanocobalamin (Vitamin B-12) 1,000 Mcg Tab, 1,000 MCG PO DAILY, (Reported) TAKES AT NOON Enoxaparin Sodium (Enoxaparin Sodium) 150 Mg/Ml Inj, 150 MG SC BID for PE Escitalopram Oxalate (Escitalopram Oxalate) 20 Mg Tab, 20 MG PO QHS, (Reported) Furosemide (Furosemide) 40 Mg Tab, 40 MG PO DAILY, (Reported) Magnesium Oxide (Magnesium Oxide) 400 Mg Tab, 400 MG PO DAILY, (Reported) Metformin Hydrochloride (Metformin HCl ER) 500 Mg Tab, 1,000 MG PO BID, ( Reported) Misoprostol (Cytotec) 100 Mcg Tab, 100 MCG PO BID, (Reported) PRESCRIBED QID, PATIENT ONLY TAKES BID Multivitamins (Multivitamin Adults) 1 Tab Tab, 1 TAB PO DAILY, (Reported) Omeprazole (Omeprazole) 40 Mg Cap, 40 MG PO BID, (Reported) Quetiapine Fumerate (Seroquel) 50 Mg Tab, 50 MG PO QHS, (Reported) Spironolactone (Spironolactone) 50 Mg Tab, 50 MG PO DAILY, (Reported) Vitamin D (Vitamin D) 2,000 Unit Cap, 2,000 UNIT PO DAILY, (Reported) Warfarin Sod (Coumadin) 10 Mg Tab, 10 MG PO DAILY INR on Sunday to determine next dose Scheduled PRN Albuterol Sulfate (Ventolin Hfa) 200 Puff/8 Gm Aers, 2 PUFF INH Q4H PRN for SHORTNESS OF BREATH, (Reported) Calcipotriene (Calcipotriene) 1 Pow Pow, 1 POW TOP BID PRN for RASH/ITCHING, ( Reported) APPLY TO SKIN FOLDS Nystatin (Nystatin) 100,000 Unit/Gm Cre, 1 DOSE TOP BID PRN for RASH/ITCHING, ( Reported) APPLY TO SKIN FOLDS Simethicone (Gas-X) 80 Mg Chw, 80 MG PO PRN PRN for GAS PAIN, (Reported) Allergies Coded Allergies: No Known Allergies (Verified , 09/30/16) CHELITA SHELBY MD Oct 07, 2016 15:16
[2016-10-07] MEDS ORDERED: ENOX150I3 SC (17:56)
[2016-10-07] MEDS ORDERED: COUM10TA PO (17:56)
[2016-10-07] MEDS ORDERED: WARFARIN SOD 5 MG TAB PO ONE (19:00)
== END 2016-10-07 20:16 | disposition home or self-care (01) | DRG 176 ==
LOC: M ED 12:14 → M ED INP 17:15 → M PCU 21:44 → M MSPAV 10-02 20:32
PROVIDERS: ADMIT Family Medicine; ATTEND Family Medicine
DX: I26.92 Saddle embolus of pulmonary artery without acute cor pulmonale (principal); I10 Essential (primary) hypertension; E78.5 Hyperlipidemia, unspecified; F41.9 Anxiety disorder, unspecified; F43.10 Post-traumatic stress disorder, unspecified; E11.9 Type 2 diabetes mellitus without complications; F32.9 Major depressive disorder, single episode, unspecified; G47.33 Obstructive sleep apnea (adult) (pediatric); D86.9 Sarcoidosis, unspecified; Z79.899 Other long term (current) drug therapy; Z79.84 Long term (current) use of oral hypoglycemic drugs; Z79.01 Long term (current) use of anticoagulants; E66.01 Morbid (severe) obesity due to excess calories; E55.9 Vitamin D deficiency, unspecified; Z98.84 Bariatric surgery status; Z80.0 Family history of malignant neoplasm of digestive organs; Z82.49 Family history of ischemic heart disease and other diseases of the circulatory system; Z84.1 Family history of disorders of kidney and ureter; Z99.89 Dependence on other enabling machines and devices; Z92.23 Personal history of estrogen therapy

== ENCOUNTER → 2016-10-09 | Outpatient (REF) | payer OTHER ==
[~2016-10-09] MED LIST changes: +BIOT10008 PO; +CALC1POW TOP; +CALC250T PO; +CYTO100T PO; +ENOX150I3 SC; +ESCI20TA PO; +ESTR0.059 TD; +GAS-80CH PO; +MAG400TA PO; +METF-414 PO; +OMEP40CA2 PO; +VITA10002 PO; +VITA500T88 PO; +WARF-23 PO; +[UNRECOGNIZED DRUG - CODE] SC
== END ==
LOC: M LAB REF 21:52 → M LABDRWAD 21:52
PROVIDERS: ATTEND Surgery
DX: K91.2 Postsurgical malabsorption, not elsewhere classified (principal)

== ENCOUNTER → 2016-11-22 | Outpatient (CLI) | payer OTHER ==
[2016-11-22 15:50] LABS: MEAN CORPUSCULAR HEMOGLOBIN 27.2 pg (27.0-33.0); MEAN CORPUSCULAR HGB CONC 32.8 g/dl (32.0-36.5); MEAN CORPUSCULAR VOLUME 82.9 fl (80.0-96.0); RED CELL DISTRIBUTION WIDTH 14.5 % (11.5-14.5); WHITE BLOOD COUNT 6.6 10^3/uL (4.0-10.0)
[2016-11-22 16:07] LABS: ALBUMIN 3.3 GM/DL (3.2-5.2); ALBUMIN/GLOBULIN RATIO 0.89 (1.00-1.93); BILIRUBIN,TOTAL 0.4 MG/DL (0.2-1.0); CALCIUM LEVEL 9.8 MG/DL (8.8-10.2); CREATININE FOR GFR 1.11 MG/DL (0.55-1.02); GLOMERULAR FILTRATION RATE 52.8 (>45); POTASSIUM SERUM 4.3 MEQ/L (3.5-5.1)
== END ==
LOC: M LAB 15:14
PROVIDERS: ATTEND Physician Assistant
DX: E11.9 Type 2 diabetes mellitus without complications (principal)

== ENCOUNTER → 2016-11-30 | Outpatient (REF) | payer OTHER ==
[2016-11-30 22:18] LABS: INR 4.55
[2016-11-30 22:37] LABS: CREATININE FOR GFR 1.13 MG/DL (0.55-1.02); GLOMERULAR FILTRATION RATE 51.8 (>45); PERCENT SATURATION 12.2 % (13.2-45.0)
[2016-11-30 23:31] LABS: BASO % 0.3 % (0.0-1.0); EOS # 0.1 10^3/uL (0.0-0.50); EOS % 2.2 % (0.0-3.0); IMMATURE GRANULOCYTE % 0.2 % (0-0); LYMPH # 2.1 10^3/uL (1.5-4.5); LYMPH % 33.8 % (24.0-44.0); MEAN CORPUSCULAR HEMOGLOBIN 27.6 pg (27.0-33.0); MEAN CORPUSCULAR HGB CONC 33.1 g/dl (32.0-36.5); MEAN CORPUSCULAR VOLUME 83.3 fl (80.0-96.0); MONO # 0.4 10^3/uL (0.0-0.8); MONO % 6.2 % (0.0-5.0); NEUTROPHILS # 3.6 10^3/uL (1.8-7.7); NEUTROPHILS % 57.3 % (36.0-66.0); PLATELET COUNT, AUTOMATED 235 10^3/uL (150-450); RED CELL DISTRIBUTION WIDTH 15.1 % (11.5-14.5); WHITE BLOOD COUNT 6.3 10^3/uL (4.0-10.0)
[2016-12-01 15:17] LABS: HEP C VIRUS AB SCREEN MEDICARE 0.1 INDEX (<0.8)
== END ==
LOC: M LABDRWAD 15:01
PROVIDERS: ATTEND Internal Medicine Gastroenterology
DX: D62 Acute posthemorrhagic anemia (principal)

== ENCOUNTER → 2016-11-30 | Outpatient (REF) | payer OTHER ==
[2016-11-30 22:37] LABS: ALBUMIN 3.5 GM/DL (3.2-5.2); ALBUMIN/GLOBULIN RATIO 1.03 (1.00-1.93); BILIRUBIN,TOTAL 0.4 MG/DL (0.2-1.0); CALCIUM LEVEL 9.2 MG/DL (8.8-10.2); CREATININE FOR GFR 1.13 MG/DL (0.55-1.02); GLOMERULAR FILTRATION RATE 51.8 (>45); MAGNESIUM LEVEL 1.5 MG/DL (1.8-2.4); PERCENT SATURATION 11.5 % (13.2-45.0); PHOSPHORUS LEVEL 3.3 MG/DL (2.5-4.9); POTASSIUM SERUM 3.9 MEQ/L (3.5-5.1); TOTAL PROTEIN 6.9 GM/DL (6.4-8.2)
[2016-11-30 23:29] LABS: BASO % 0.5 % (0.0-1.0); EOS # 0.2 10^3/uL (0.0-0.50); EOS % 2.4 % (0.0-3.0); IMMATURE GRANULOCYTE % 0.2 % (0-0); LYMPH # 2.1 10^3/uL (1.5-4.5); LYMPH % 34.3 % (24.0-44.0); MEAN CORPUSCULAR HEMOGLOBIN 27.7 pg (27.0-33.0); MEAN CORPUSCULAR HGB CONC 33.2 g/dl (32.0-36.5); MEAN CORPUSCULAR VOLUME 83.6 fl (80.0-96.0); MONO # 0.4 10^3/uL (0.0-0.8); MONO % 6.7 % (0.0-5.0); NEUTROPHILS # 3.5 10^3/uL (1.8-7.7); NEUTROPHILS % 55.9 % (36.0-66.0); PLATELET COUNT, AUTOMATED 242 10^3/uL (150-450); WHITE BLOOD COUNT 6.2 10^3/uL (4.0-10.0)
[2016-12-01 12:23] LABS: PRETREATED FOLATE FOR RBCFOL 10.9 NG/ML
== END ==
LOC: M LABDRWAD 10:13
PROVIDERS: ATTEND Surgery
DX: K91.2 Postsurgical malabsorption, not elsewhere classified (principal); Z98.84 Bariatric surgery status; E55.9 Vitamin D deficiency, unspecified

== ENCOUNTER → 2016-11-30 | Outpatient (REF) | payer OTHER ==
[2016-11-30 21:13] LABS: MEAN CORPUSCULAR HEMOGLOBIN 27.6 pg (27.0-33.0); MEAN CORPUSCULAR HGB CONC 33.2 g/dl (32.0-36.5); MEAN CORPUSCULAR VOLUME 83.3 fl (80.0-96.0); RED CELL DISTRIBUTION WIDTH 14.9 % (11.5-14.5); WHITE BLOOD COUNT 6.4 10^3/uL (4.0-10.0)
[2016-11-30 21:39] LABS: ALBUMIN 3.5 GM/DL (3.2-5.2); ALBUMIN/GLOBULIN RATIO 0.97 (1.00-1.93); BILIRUBIN,TOTAL 0.4 MG/DL (0.2-1.0); CALCIUM LEVEL 9.5 MG/DL (8.8-10.2); CREATININE FOR GFR 1.18 MG/DL (0.55-1.02); GLOMERULAR FILTRATION RATE 49.2 (>45); POTASSIUM SERUM 3.9 MEQ/L (3.5-5.1); TOTAL PROTEIN 7.1 GM/DL (6.4-8.2)
== END ==
LOC: M SFHCADAM 16:02
PROVIDERS: ATTEND Physician Assistant
DX: E11.9 Type 2 diabetes mellitus without complications (principal); N18.3 Chronic kidney disease, stage 3 (moderate); Z79.01 Long term (current) use of anticoagulants

== ENCOUNTER 2016-12-21 17:31 | Emergency (ER) | payer OTHER ==
[~2016-12-21] VITALS: Ht 177.8 cm; Wt 147.7 kg
[~2016-12-21 17:31] MED LIST changes: -WARF-23 PO
[2016-12-21] MEDS ORDERED: WARF-23 PO (17:52)
[2016-12-21] MEDS ORDERED: ASPIRIN 81 MG CHEW TABLET PO ONE (18:00)
[2016-12-21 18:11] LABS: BASO % 0.2 % (0.0-1.0); EOS # 0.2 10^3/uL (0.0-0.50); EOS % 1.8 % (0.0-3.0); IMMATURE GRANULOCYTE % 0.1 % (0-0); LYMPH # 2.5 10^3/uL (1.5-4.5); LYMPH % 28.4 % (24.0-44.0); MEAN CORPUSCULAR HEMOGLOBIN 28.2 pg (27.0-33.0); MEAN CORPUSCULAR HGB CONC 33.6 g/dl (32.0-36.5); MEAN CORPUSCULAR VOLUME 83.9 fl (80.0-96.0); MONO # 0.8 10^3/uL (0.0-0.8); MONO % 8.9 % (0.0-5.0); NEUTROPHILS # 5.3 10^3/uL (1.8-7.7); NEUTROPHILS % 60.6 % (36.0-66.0); PLATELET COUNT, AUTOMATED 251 10^3/uL (150-450); RED CELL DISTRIBUTION WIDTH 15.1 % (11.5-14.5); WHITE BLOOD COUNT 8.7 10^3/uL (4.0-10.0)
[2016-12-21 18:37] LABS: ALBUMIN 3.6 GM/DL (3.2-5.2); ALBUMIN/GLOBULIN RATIO 0.86 (1.00-1.93); ALKALINE PHOSPHATASE 89 U/L (45-117); ALT/SGPT 25 U/L (12-78); ANION GAP 8 MEQ/L (8-16); AST/SGOT 11 U/L (15-37); BILIRUBIN,DIRECT 0.2 MG/DL (0.0-0.2); BILIRUBIN,TOTAL 0.6 MG/DL (0.2-1.0); CALCIUM LEVEL 9.8 MG/DL (8.8-10.2); CARBON DIOXIDE LEVEL 28 MEQ/L (21-32); CHLORIDE LEVEL 103 MEQ/L (98-107); CREATININE FOR GFR 1.24 MG/DL (0.55-1.02); GLOMERULAR FILTRATION RATE 46.5 (>45); GLUCOSE, FASTING 124 MG/DL (80-110); POTASSIUM SERUM 3.9 MEQ/L (3.5-5.1); SODIUM LEVEL 139 MEQ/L (136-145); TOTAL PROTEIN 7.8 GM/DL (6.4-8.2)
[2016-12-21 18:38] LABS: BLOOD UREA NITROGEN 15 MG/DL (7-18)
--- NOTE | 2016-12-21 19:55 | REP ---
Portable chest, 07:25 p.m., single AP view, the patient upright: Comparison is a chest CT dated 09/30/2016. Lung quezada are clear. Cardiac size is normal. The radha, mediastinum, and bony thorax are unremarkable. 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 Impression: Essentially negative chest. Signed by Krishna Ferreira MD 12/21/2016 07:46 P
[2016-12-21 22:24] VITALS: BP 151/67
--- NOTE | 2016-12-22 07:23 | ECGEPIP ---
Stationary ECG Study [facility] - ED Test Date: 2016-12-21 Pat Name: OG PANTOJA Department: Room: - Gender: F Mobile Nurse: AF : 1955 Requested By: Joanna Vicente Order Number: [id number] Reading MD: Joanna Vicente Measurements Intervals [place] Rate: 77 P: 63 MT: 207 QRS: -57 QRSD: 157 T: -7 QT: 407 QTc: 461 Interpretive Statements SINUS RHYTHM RIGHT BUNDLE BRANCH BLOCK LEFT ANTERIOR FASCICULAR BLOCK POSSIBLE ANTERIOR MYOCARDIAL INFARCTION, PROBABLY OLD DECREASED RATE 07/29/16 Electronically Signed On 12-22-2016 7:22:53 EDT by Joanna Vicente
--- NOTE | 2016-12-22 07:24 | ECGEPIP ---
Stationary ECG Study [facility] - ED Test Date: 2016-12-21 Pat Name: OG PANTOJA Department: Room: - Gender: F Eeler: ct : 1955 Requested By: MEGHANN Anderson Order Number: [id number] Reading MD: Joanna Vicente Measurements Intervals [place] Rate: 71 P: 77 [place]: 223 QRS: -50 QRSD: 158 T: -12 QT: 414 QTc: 453 Interpretive Statements SINUS RHYTHM WITH FIRST DEGREE AV BLOCK WITH OCCASIONAL SUPRAVENTRICULAR PREMATURE COMPLEXES RIGHT BUNDLE BRANCH BLOCK LEFT ANTERIOR FASCICULAR BLOCK POSSIBLE ANTERIOR MYOCARDIAL INFARCTION, PROBABLY OLD SIMILAR 12/21/16 Electronically Signed On 12-22-2016 7:24:03 EDT by Joanna Vicente
== END 2016-12-21 23:20 | disposition home or self-care (01) ==
LOC: M ED 17:31
DX: R07.9 Chest pain, unspecified (principal); Z98.84 Bariatric surgery status